=== PATIENT | female | born 1985 | race Caucasian/White ===

== ENCOUNTER 2022-05-01 08:02 | Day surgery (SDC) | payer OTHER ==
[2022-04-30 16:18] VITALS: BMI 31.8
[2022-05-01] MEDS ORDERED: levETIRAcetam 500 MG/5 ML INJECTION VIAL IVPB SCH (10:00)
[2022-05-01] MEDS ORDERED: KETAMINE HCL 500 MG/10 ML VIAL ONE (10:47)
[2022-05-02 15:58] VITALS: RESP 18; TEMP 98
[2022-05-02 16:03] VITALS: BP 122/78; PULSE 78
== END 2022-05-01 13:50 ==
LOC: FECT 08:02
PROVIDERS: ATTEND Psychiatry & Neurology Psychiatry
PROC: GZB4ZZZ Other Electroconvulsive Therapy (ICD-10-PCS; principal; 2022-05-01 12:07)
DX: F32.A Depression, unspecified (principal)
CPT/HCPCS: 81025; 90870; 94760

== ENCOUNTER 2022-05-03 05:56 | Day surgery (SDC) | payer OTHER ==
[2022-05-02 17:03] VITALS: BMI 31.8
[2022-05-03] MEDS ORDERED: KETAMINE HCL 500 MG/10 ML VIAL ONE (07:52)
[2022-05-03 08:25] VITALS: TEMP 98
[2022-05-03 09:30] VITALS: RESP 18
[2022-05-03 10:49] VITALS: BP 130/63; PULSE 89
== END 2022-05-03 10:00 ==
LOC: FECT 05:56
PROVIDERS: ATTEND Psychiatry & Neurology Psychiatry
PROC: GZB4ZZZ Other Electroconvulsive Therapy (ICD-10-PCS; principal; 2022-05-03 08:07)
DX: F32.A Depression, unspecified (principal)
CPT/HCPCS: 90870; 94760

== ENCOUNTER 2022-05-10 07:15 | Day surgery (SDC) | payer OTHER ==
[2022-05-08 07:12] VITALS: BMI 31.8
[2022-05-10] MEDS ORDERED: KETAMINE HCL 500 MG/10 ML VIAL ONE (09:03)
[2022-05-10 10:05] VITALS: RESP 18; TEMP 97.8
[2022-05-10 10:36] VITALS: BP 110/88; PULSE 89
== END 2022-05-10 10:30 ==
LOC: FECT 07:15
PROVIDERS: ATTEND Psychiatry & Neurology Psychiatry
PROC: GZB4ZZZ Other Electroconvulsive Therapy (ICD-10-PCS; principal; 2022-05-10 09:11)
DX: F32.A Depression, unspecified (principal)
CPT/HCPCS: 81025; 90870; 94760; C9803-CS; U0003; U0005

== ENCOUNTER → 2022-05-11 | Day surgery (SDC) | payer OTHER ==
[2022-05-08 07:23] VITALS: BMI 31.8
[~2022-05-11] MED LIST: ACETAMINOPHEN 325 MG TABLET (FP) PO PRN; KETAMINE HCL 500 MG/10 ML VIAL ONE; LACTATED RINGERS SOLUTION 1,000 ML IV SCH; ONDANSETRON 4 MG/2 ML VIAL IVPUSH PRN; PROMETHAZINE HCL 25 MG/1 ML VIAL IVPUSH PRN
[2022-05-11 09:37] VITALS: RESP 18; TEMP 97.9
[2022-05-11 10:20] VITALS: BP 121/80; PULSE 88
== END | disposition home or self-care (01) ==
LOC: FECT 06:44
PROVIDERS: ATTEND Psychiatry & Neurology Psychiatry
PROC: GZB4ZZZ Other Electroconvulsive Therapy (ICD-10-PCS; principal; 2022-05-11 08:33)
DX: F32.A Depression, unspecified (principal)
CPT/HCPCS: 90870; 94760

== ENCOUNTER 2022-05-17 06:51 | Day surgery (SDC) | payer OTHER ==
[2022-05-14 17:01] VITALS: BMI 31.8
[2022-05-17] MEDS ORDERED: KETAMINE HCL 500 MG/10 ML VIAL ONE (08:15)
[2022-05-17 08:47] VITALS: TEMP 97.8
[2022-05-17 09:37] VITALS: RESP 18
[2022-05-17 09:38] VITALS: BP 115/83; PULSE 88
== END 2022-05-17 09:50 ==
LOC: FECT 06:51
PROVIDERS: ATTEND Psychiatry & Neurology Psychiatry
PROC: GZB4ZZZ Other Electroconvulsive Therapy (ICD-10-PCS; principal; 2022-05-17 08:29)
DX: F33.2 Major depressive disorder, recurrent severe without psychotic features (principal)
CPT/HCPCS: 81025; 90870; 94760; C9803-CS; U0003; U0005

== ENCOUNTER 2022-05-18 07:27 | Day surgery (SDC) | payer OTHER ==
[2022-05-16 15:40] VITALS: BMI 31.8
[2022-05-18] MEDS ORDERED: KETAMINE HCL 500 MG/10 ML VIAL ONE (09:18)
[2022-05-18 10:23] VITALS: RESP 18; TEMP 98
[2022-05-18 10:53] VITALS: BP 122/72; PULSE 86
== END 2022-05-18 11:00 ==
LOC: FECT 07:27
PROVIDERS: ATTEND Psychiatry & Neurology Psychiatry
PROC: GZB4ZZZ Other Electroconvulsive Therapy (ICD-10-PCS; principal; 2022-05-18 09:30)
DX: F33.2 Major depressive disorder, recurrent severe without psychotic features (principal)
CPT/HCPCS: 90870; 94760

== ENCOUNTER 2022-05-22 05:56 | Day surgery (SDC) | payer OTHER ==
[2022-05-18 16:42] VITALS: BMI 31.8
[2022-05-22] MEDS ORDERED: KETAMINE HCL 500 MG/10 ML VIAL ONE (08:03)
[2022-05-22 09:36] VITALS: RESP 18; TEMP 98
[2022-05-22 09:38] VITALS: BP 115/70; PULSE 91
== END 2022-05-22 09:40 ==
LOC: FECT 05:56
PROVIDERS: ATTEND Psychiatry & Neurology Psychiatry
PROC: GZB4ZZZ Other Electroconvulsive Therapy (ICD-10-PCS; principal; 2022-05-22 08:19)
DX: F32.A Depression, unspecified (principal)
CPT/HCPCS: 81025; 90870; 94760; C9803-CS; U0003; U0005

== ENCOUNTER 2022-05-24 07:22 | Day surgery (SDC) | payer OTHER ==
[2022-05-22 15:47] VITALS: BMI 31.8
[2022-05-24] MEDS ORDERED: KETAMINE HCL 500 MG/10 ML VIAL ONE (10:01)
[2022-05-24 10:27] VITALS: TEMP 98.4
[2022-05-24] MEDS ORDERED: ACETAMINOPHEN 1000 MG/100 ML BAG IVPB ONE (11:02)
[2022-05-24 11:34] VITALS: RESP 18
[2022-05-24 11:40] VITALS: BP 115/84; PULSE 89
== END 2022-05-24 11:45 ==
LOC: FECT 07:22
PROVIDERS: ATTEND Psychiatry & Neurology Psychiatry
PROC: GZB4ZZZ Other Electroconvulsive Therapy (ICD-10-PCS; principal; 2022-05-24 10:11)
DX: F31.9 Bipolar disorder, unspecified (principal)
CPT/HCPCS: 90870; 94760

== ENCOUNTER 2022-05-25 06:09 | Day surgery (SDC) | payer OTHER ==
[2022-05-22 15:57] VITALS: BMI 31.8
[2022-05-25] MEDS ORDERED: KETAMINE HCL 500 MG/10 ML VIAL ONE (08:02)
[2022-05-25 08:32] VITALS: TEMP 97.4
[2022-05-25 08:51] VITALS: RESP 18
[2022-05-25 09:06] VITALS: BP 118/70; PULSE 92
== END 2022-05-25 09:40 | disposition home or self-care (01) ==
LOC: FECT 06:09
PROVIDERS: ATTEND Psychiatry & Neurology Psychiatry
PROC: GZB4ZZZ Other Electroconvulsive Therapy (ICD-10-PCS; principal; 2022-05-25 08:30)
DX: F32.A Depression, unspecified (principal)
CPT/HCPCS: 90870; 94760; C9803-CS; U0003; U0005

== ENCOUNTER 2022-05-29 06:25 | Day surgery (SDC) | payer OTHER ==
[2022-05-24 12:00] VITALS: BMI 31.8
[2022-05-29] MEDS ORDERED: KETAMINE HCL 500 MG/10 ML VIAL ONE (08:19)
[2022-05-29 09:32] VITALS: TEMP 97.8
[2022-05-29 10:22] VITALS: BP 118/71; PULSE 89; RESP 18
[2022-05-29] MEDS ORDERED: MIRTAZAPINE 30 MG TABLET PO SCH (22:00)
[2022-05-29] MEDS ORDERED: levETIRAcetam 500 MG TABLET (FP) PO SCH (22:00)
[2022-05-29] MEDS ORDERED: chlorproMAZINE HCL 100 MG TABLET PO SCH (22:00)
[2022-05-29] MEDS ORDERED: DOCUSATE SODIUM 100 MG CAPSULE (FP) PO SCH (22:00)
[2022-05-30] MEDS ORDERED: lamoTRIgine 100 MG TABLET PO SCH (10:00)
[2022-05-30] MEDS ORDERED: clonazePAM 0.5 MG TABLET PO SCH (10:00)
== END 2022-05-29 10:15 | disposition home or self-care (01) ==
LOC: FECT 06:25
PROVIDERS: ATTEND Psychiatry & Neurology Psychiatry
PROC: GZB4ZZZ Other Electroconvulsive Therapy (ICD-10-PCS; principal; 2022-05-29 08:32)
DX: F32.A Depression, unspecified (principal)
CPT/HCPCS: 81025; 90870; 94760

== ENCOUNTER 2022-06-08 08:48 | Day surgery (SDC) | payer OTHER ==
[2022-06-05 10:37] VITALS: BMI 31.8
[2022-06-08] MEDS ORDERED: KETAMINE HCL 500 MG/10 ML VIAL ONE (10:04)
[2022-06-08] MEDS ORDERED: ONDANSETRON 4 MG/2 ML VIAL ONE (10:08)
[2022-06-08] MEDS ORDERED: KETOROLAC TROMETHAMINE 30 MG/1 ML VIAL ONE (10:08)
[2022-06-08] MEDS ORDERED: SUCCINYLCHOLINE CHLORIDE 200 MG/10 ML SYRINGE ONE (10:08)
[2022-06-08] MEDS ORDERED: PROPOFOL 20 ML ONE (10:08)
[2022-06-08 10:52] VITALS: RESP 18
[2022-06-08] MEDS ORDERED: LACTATED RINGERS SOLUTION 1,000 ML IV SCH (11:15)
[2022-06-08 11:41] VITALS: BP 110/77; PULSE 89; TEMP 98
== END 2022-06-08 11:35 ==
LOC: FECT 08:48
PROVIDERS: ATTEND Psychiatry & Neurology Psychiatry
PROC: GZB4ZZZ Other Electroconvulsive Therapy (ICD-10-PCS; principal; 2022-06-08 10:15)
DX: F32.A Depression, unspecified (principal)
CPT/HCPCS: 81025; 90870; 94760

== ENCOUNTER 2022-06-12 06:09 | Day surgery (SDC) | payer OTHER ==
[2022-06-11 12:35] VITALS: BMI 31.8
[2022-06-12] MEDS ORDERED: KETAMINE HCL 200 MG/20 ML VIAL ONE (08:13)
[2022-06-12 08:59] VITALS: TEMP 97.2
[2022-06-12 09:05] VITALS: RESP 18
[2022-06-12 10:07] VITALS: BP 122/73; PULSE 89
== END 2022-06-12 10:00 ==
LOC: FECT 06:09
PROVIDERS: ATTEND Psychiatry & Neurology Psychiatry
PROC: GZB4ZZZ Other Electroconvulsive Therapy (ICD-10-PCS; principal; 2022-06-12 08:20)
DX: F32.A Depression, unspecified (principal)
CPT/HCPCS: 81025; 90870; 94760; C9803-CS; U0003; U0005

== ENCOUNTER 2022-06-14 06:16 | Day surgery (SDC) | payer OTHER ==
[2022-06-13 09:54] VITALS: BMI 31.8
[2022-06-14] MEDS ORDERED: KETAMINE HCL 500 MG/10 ML VIAL ONE (08:07)
[2022-06-14 09:01] VITALS: TEMP 97.1
[2022-06-14 09:42] VITALS: RESP 18
[2022-06-14 09:47] VITALS: BP 110/70; PULSE 91
== END 2022-06-14 09:55 ==
LOC: FECT 06:16
PROVIDERS: ATTEND Psychiatry & Neurology Psychiatry
PROC: GZB4ZZZ Other Electroconvulsive Therapy (ICD-10-PCS; principal; 2022-06-14 08:18)
DX: F32.A Depression, unspecified (principal)
CPT/HCPCS: 90870; 94760

== ENCOUNTER 2022-06-15 07:08 | Day surgery (SDC) | payer OTHER ==
[2022-06-11 17:24] VITALS: BMI 31.8
[2022-06-15] MEDS ORDERED: KETAMINE HCL 500 MG/10 ML VIAL ONE (09:08)
[2022-06-15] MEDS ORDERED: KETOROLAC TROMETHAMINE 30 MG/1 ML VIAL ONE (09:08)
[2022-06-15] MEDS ORDERED: ONDANSETRON 4 MG/2 ML VIAL ONE (09:08)
[2022-06-15 10:28] VITALS: RESP 18; TEMP 97.9
[2022-06-15 11:03] VITALS: BP 116/74; PULSE 98
== END 2022-06-15 11:00 ==
LOC: FECT 07:08
PROVIDERS: ATTEND Psychiatry & Neurology Psychiatry
PROC: GZB4ZZZ Other Electroconvulsive Therapy (ICD-10-PCS; principal; 2022-06-15 09:27)
DX: F32.A Depression, unspecified (principal)
CPT/HCPCS: 90870; 94760; C9803-CS; U0003; U0005

== ENCOUNTER 2022-06-19 06:05 | Day surgery (SDC) | payer OTHER ==
[2022-06-18 08:04] VITALS: BMI 31.8
[2022-06-19] MEDS ORDERED: KETAMINE HCL 500 MG/10 ML VIAL ONE (07:53)
[2022-06-19] MEDS ORDERED: SUCCINYLCHOLINE CHLORIDE 200 MG/10 ML SYRINGE ONE (08:01)
[2022-06-19 08:49] VITALS: RESP 18
[2022-06-19 09:41] VITALS: BP 121/81
[2022-06-19 09:45] VITALS: PULSE 81; TEMP 97
== END 2022-06-19 09:30 | disposition home or self-care (01) ==
LOC: FECT 06:05
PROVIDERS: ATTEND Psychiatry & Neurology Psychiatry
PROC: GZB4ZZZ Other Electroconvulsive Therapy (ICD-10-PCS; principal; 2022-06-19 08:07)
DX: F33.2 Major depressive disorder, recurrent severe without psychotic features (principal)
CPT/HCPCS: 81025; 90870; 94760; C9803-CS; U0003; U0005

== ENCOUNTER 2022-06-21 08:57 | Day surgery (SDC) | payer OTHER ==
[2022-06-18 08:10] VITALS: BMI 31.8
[2022-06-21 09:48] VITALS: RESP 16
[2022-06-21] MEDS ORDERED: KETAMINE HCL 500 MG/10 ML VIAL ONE (10:22)
[2022-06-21] MEDS ORDERED: SUCCINYLCHOLINE CHLORIDE 200 MG/10 ML SYRINGE ONE (10:25)
[2022-06-21] MEDS ORDERED: PROPOFOL 20 ML ONE (10:25)
[2022-06-21] MEDS ORDERED: ONDANSETRON 4 MG/2 ML VIAL ONE (10:26)
[2022-06-21 11:37] VITALS: TEMP 97.1
[2022-06-21 12:01] VITALS: BP 111/75; PULSE 90
== END 2022-06-21 12:04 | disposition home or self-care (01) ==
LOC: FECT 08:57
PROVIDERS: ATTEND Psychiatry & Neurology Psychiatry
PROC: GZB4ZZZ Other Electroconvulsive Therapy (ICD-10-PCS; principal; 2022-06-21 10:33)
DX: F32.A Depression, unspecified (principal)
CPT/HCPCS: 90870; 94760

== ENCOUNTER 2022-06-22 09:59 | Day surgery (SDC) | payer OTHER ==
[2022-06-18 08:12] VITALS: BMI 31.8
[2022-06-22] MEDS ORDERED: KETAMINE HCL 500 MG/10 ML VIAL ONE (11:42)
[2022-06-22 12:21] VITALS: TEMP 98.6
[2022-06-22 13:15] VITALS: RESP 18
[2022-06-22 13:22] VITALS: BP 109/80; PULSE 92
== END 2022-06-22 13:15 ==
LOC: FECT 09:59
PROVIDERS: ATTEND Psychiatry & Neurology Psychiatry
PROC: GZB4ZZZ Other Electroconvulsive Therapy (ICD-10-PCS; principal; 2022-06-22 11:52)
DX: F32.A Depression, unspecified (principal)
CPT/HCPCS: 90870; 94760; C9803-CS; U0003; U0005

== ENCOUNTER 2022-06-26 08:37 | Day surgery (SDC) | payer OTHER ==
[2022-06-22 11:39] VITALS: BMI 31.8
[2022-06-26] MEDS ORDERED: KETAMINE HCL 500 MG/10 ML VIAL ONE (10:33)
[2022-06-26 12:21] VITALS: RESP 20; TEMP 98.2
[2022-06-26 12:38] VITALS: BP 110/72; PULSE 94
== END 2022-06-26 12:45 | disposition home or self-care (01) ==
LOC: FECT 08:37
PROVIDERS: ATTEND Psychiatry & Neurology Psychiatry
PROC: GZB4ZZZ Other Electroconvulsive Therapy (ICD-10-PCS; principal; 2022-06-26 10:43)
DX: F32.A Depression, unspecified (principal)
CPT/HCPCS: 84703; 90870; 94760; C9803-CS; U0003; U0005

== ENCOUNTER 2022-07-12 06:05 | Day surgery (SDC) | payer OTHER ==
[2022-07-12 06:52] VITALS: TEMP 97.8; BMI 31.6
[2022-07-12] MEDS ORDERED: KETAMINE HCL 500 MG/10 ML VIAL ONE (08:35)
[2022-07-12] MEDS ORDERED: PROPOFOL 20 ML ONE (09:20)
[2022-07-12] MEDS ORDERED: DEXAMETHASONE SOD PHOSPHATE 4 MG/1 ML VIAL ONE ×2 (09:30→09:40)
[2022-07-12] MEDS ORDERED: ONDANSETRON 4 MG/2 ML VIAL ONE (09:30)
[2022-07-12] MEDS ORDERED: KETOROLAC TROMETHAMINE 30 MG/1 ML VIAL ONE (09:30)
[2022-07-12] MEDS ORDERED: SUCCINYLCHOLINE CHLORIDE 200 MG/10 ML SYRINGE ONE (10:10)
[2022-07-12] MEDS ORDERED: ONDANSETRON 4 MG/2 ML VIAL IVPUSH PRN (10:34)
[2022-07-12] MEDS ORDERED: LACTATED RINGERS SOLUTION 1,000 ML IV SCH (10:45)
[2022-07-12 11:28] VITALS: RESP 18
[2022-07-12 11:30] VITALS: BP 108/80; PULSE 98
== END 2022-07-12 11:30 ==
LOC: FECT 06:05
PROVIDERS: ATTEND Psychiatry & Neurology Psychiatry
PROC: GZB4ZZZ Other Electroconvulsive Therapy (ICD-10-PCS; principal; 2022-07-12 09:33)
DX: F32.A Depression, unspecified (principal)
CPT/HCPCS: 81025; 90870; 94760

== ENCOUNTER 2022-07-13 06:42 | Day surgery (SDC) | payer OTHER ==
[2022-06-22 11:46] VITALS: BMI 31.8
[2022-07-13] MEDS ORDERED: KETAMINE HCL 500 MG/10 ML VIAL ONE (08:51)
[2022-07-13 10:50] VITALS: PULSE 85; TEMP 97.9
[2022-07-13 10:52] VITALS: BP 114/67; RESP 18
== END 2022-07-13 11:11 | disposition home or self-care (01) ==
LOC: FECT 06:42
PROVIDERS: ATTEND Psychiatry & Neurology Psychiatry
PROC: GZB4ZZZ Other Electroconvulsive Therapy (ICD-10-PCS; principal; 2022-07-13 09:19)
DX: F32.A Depression, unspecified (principal)
CPT/HCPCS: 90870; 94760

== ENCOUNTER 2022-07-17 06:01 | Day surgery (SDC) | payer OTHER ==
[2022-06-25 12:24] VITALS: BMI 31.8
[2022-07-17] MEDS ORDERED: KETAMINE HCL 500 MG/10 ML VIAL ONE (07:59)
[2022-07-17 09:48] VITALS: BP 120/80; PULSE 66; RESP 20; TEMP 97.8
== END 2022-07-17 09:55 | disposition home or self-care (01) ==
LOC: FECT 06:01
PROVIDERS: ATTEND Psychiatry & Neurology Psychiatry
PROC: GZB4ZZZ Other Electroconvulsive Therapy (ICD-10-PCS; principal; 2022-07-17 08:22)
DX: F32.A Depression, unspecified (principal)
CPT/HCPCS: 81025; 90870; 94760

== ENCOUNTER 2022-07-19 06:42 | Day surgery (SDC) | payer OTHER ==
[2022-07-12 17:51] VITALS: BMI 31.6
[2022-07-19] MEDS ORDERED: SUCCINYLCHOLINE CHLORIDE 200 MG/10 ML SYRINGE ONE (08:28)
[2022-07-19] MEDS ORDERED: PROPOFOL 20 ML ONE (08:28)
[2022-07-19 10:24] VITALS: RESP 18; TEMP 97.4
[2022-07-19 10:40] VITALS: BP 117/70; PULSE 102
== END 2022-07-19 10:41 | disposition home or self-care (01) ==
LOC: FECT 06:42
PROVIDERS: ATTEND Psychiatry & Neurology Psychiatry
PROC: GZB4ZZZ Other Electroconvulsive Therapy (ICD-10-PCS; principal; 2022-07-19 09:37)
DX: F32.A Depression, unspecified (principal)
CPT/HCPCS: 90870; 94760

== ENCOUNTER 2022-07-20 06:17 | Day surgery (SDC) | payer OTHER ==
[2022-07-12 18:00] VITALS: BMI 31.6
[2022-07-20] MEDS ORDERED: hydrALAZINE HCL 20 MG/ML VIAL ONE (08:55)
[2022-07-20 09:13] VITALS: BP 121/77; PULSE 93; RESP 18; TEMP 98
== END 2022-07-20 09:00 ==
LOC: FECT 06:17
PROVIDERS: ATTEND Psychiatry & Neurology Psychiatry
PROC: GZB4ZZZ Other Electroconvulsive Therapy (ICD-10-PCS; principal; 2022-07-20 07:53)
DX: F31.9 Bipolar disorder, unspecified (principal)
CPT/HCPCS: 90870; 94760

== ENCOUNTER 2022-07-24 05:56 | Day surgery (SDC) | payer OTHER ==
[2022-07-19 10:51] VITALS: BMI 31.6
[2022-07-24] MEDS ORDERED: PROMETHAZINE HCL 25 MG/1 ML VIAL IVPUSH PRN (07:19)
[2022-07-24] MEDS ORDERED: ACETAMINOPHEN 500 MG TABLET (FP) PO PRN (07:19)
[2022-07-24] MEDS ORDERED: ONDANSETRON 4 MG/2 ML VIAL IVPUSH PRN (07:19)
[2022-07-24] MEDS ORDERED: LACTATED RINGERS SOLUTION 1,000 ML IV SCH (07:30)
[2022-07-24] MEDS ORDERED: LIDOCAINE HCL/PF 2% SDV 5ML VIAL ONE (08:07)
[2022-07-24 08:30] VITALS: TEMP 98.4
[2022-07-24 09:25] VITALS: BP 103/76; PULSE 96; RESP 18
== END 2022-07-24 09:40 ==
LOC: FECT 05:56
PROVIDERS: ATTEND Psychiatry & Neurology Psychiatry
PROC: GZB4ZZZ Other Electroconvulsive Therapy (ICD-10-PCS; principal; 2022-07-24 08:12)
DX: F31.9 Bipolar disorder, unspecified (principal)
CPT/HCPCS: 81025; 90870; 94760

== ENCOUNTER 2022-07-26 07:17 | Day surgery (SDC) | payer OTHER ==
[2022-07-19 10:56] VITALS: BMI 31.6
[2022-07-26] MEDS ORDERED: PROMETHAZINE HCL 25 MG/1 ML VIAL IVPUSH PRN (11:31)
[2022-07-26] MEDS ORDERED: ACETAMINOPHEN 500 MG TABLET (FP) PO PRN (11:31)
[2022-07-26] MEDS ORDERED: LACTATED RINGERS SOLUTION 1,000 ML IV SCH (11:45)
[2022-07-26 12:05] VITALS: BP 108/78; PULSE 98; RESP 18; TEMP 97.8
== END 2022-07-26 10:40 | disposition home or self-care (01) ==
LOC: FECT 07:17
PROVIDERS: ATTEND Psychiatry & Neurology Psychiatry
PROC: GZB4ZZZ Other Electroconvulsive Therapy (ICD-10-PCS; principal; 2022-07-26 09:25)
DX: F31.9 Bipolar disorder, unspecified (principal)
CPT/HCPCS: 90870; 94760

== ENCOUNTER 2022-07-27 07:51 | Day surgery (SDC) | payer OTHER ==
[2022-07-19 12:12] VITALS: BMI 31.6
[2022-07-27] MEDS ORDERED: KETAMINE HCL 500 MG/10 ML VIAL ONE (09:23)
[2022-07-27] MEDS ORDERED: ONDANSETRON 4 MG/2 ML VIAL ONE (09:26)
[2022-07-27] MEDS ORDERED: DEXAMETHASONE SOD PHOSPHATE 4 MG/1 ML VIAL ONE (09:26)
[2022-07-27] MEDS ORDERED: KETOROLAC TROMETHAMINE 30 MG/1 ML VIAL ONE (09:26)
[2022-07-27 14:14] VITALS: TEMP 97.5
[2022-07-27 14:18] VITALS: BP 124/85; PULSE 85; RESP 16
== END 2022-07-27 11:22 | disposition home or self-care (01) ==
LOC: FECT 07:51
PROVIDERS: ATTEND Psychiatry & Neurology Psychiatry
PROC: GZB4ZZZ Other Electroconvulsive Therapy (ICD-10-PCS; principal; 2022-07-27 09:35)
DX: F31.5 Bipolar disorder, current episode depressed, severe, with psychotic features (principal)
CPT/HCPCS: 90870; 94760

== ENCOUNTER 2022-07-31 08:09 | Day surgery (SDC) | payer OTHER ==
[2022-07-27 07:18] VITALS: BMI 31.6
[2022-07-31] MEDS ORDERED: KETAMINE HCL 500 MG/10 ML VIAL ONE (10:36)
[2022-07-31 11:11] VITALS: TEMP 98.8
[2022-07-31 12:23] VITALS: RESP 18
[2022-07-31 12:24] VITALS: BP 112/76; PULSE 98
== END 2022-07-31 12:15 ==
LOC: FECT 08:09
PROVIDERS: ATTEND Psychiatry & Neurology Psychiatry
PROC: GZB4ZZZ Other Electroconvulsive Therapy (ICD-10-PCS; principal; 2022-07-31 10:48)
DX: F31.9 Bipolar disorder, unspecified (principal)
CPT/HCPCS: 81025; 90870; 94760

== ENCOUNTER 2022-08-02 07:58 | Day surgery (SDC) | payer OTHER ==
[2022-07-27 07:35] VITALS: BMI 31.6
[2022-08-02] MEDS ORDERED: KETAMINE HCL 500 MG/10 ML VIAL ONE (08:48)
[2022-08-02] MEDS ORDERED: PROPOFOL 20 ML ONE (09:05)
[2022-08-02] MEDS ORDERED: SUCCINYLCHOLINE CHLORIDE 200 MG/10 ML SYRINGE ONE (09:05)
[2022-08-02 10:01] VITALS: RESP 18; TEMP 98
[2022-08-02 10:25] VITALS: BP 121/71; PULSE 98
== END 2022-08-02 10:40 ==
LOC: FECT 07:58
PROVIDERS: ATTEND Psychiatry & Neurology Psychiatry
PROC: GZB4ZZZ Other Electroconvulsive Therapy (ICD-10-PCS; principal; 2022-08-02 09:09)
DX: F32.A Depression, unspecified (principal)
CPT/HCPCS: 90870; 94760

== ENCOUNTER 2022-08-07 07:59 | Day surgery (SDC) | payer OTHER ==
[2022-08-02 15:54] VITALS: BMI 31.6
[2022-08-07] MEDS ORDERED: KETAMINE HCL 500 MG/10 ML VIAL ONE (08:45)
[2022-08-07 09:42] VITALS: TEMP 97.2
[2022-08-07 10:23] VITALS: RESP 18
[2022-08-07 10:46] VITALS: BP 100/68; PULSE 96
== END 2022-08-07 11:00 ==
LOC: FECT 07:59
PROVIDERS: ATTEND Psychiatry & Neurology Psychiatry
PROC: GZB4ZZZ Other Electroconvulsive Therapy (ICD-10-PCS; principal; 2022-08-07 09:15)
DX: F31.9 Bipolar disorder, unspecified (principal)
CPT/HCPCS: 81025; 90870; 94760

== ENCOUNTER 2022-08-10 07:18 | Day surgery (SDC) | payer OTHER ==
[2022-08-08 16:37] VITALS: BMI 31.6
[2022-08-10] MEDS ORDERED: KETAMINE HCL 500 MG/10 ML VIAL ONE (08:09)
[2022-08-10 09:42] VITALS: RESP 18; TEMP 97.8
[2022-08-10 10:18] VITALS: BP 111/64; PULSE 98
== END 2022-08-10 10:21 | disposition home or self-care (01) ==
LOC: FECT 07:18
PROVIDERS: ATTEND Psychiatry & Neurology Psychiatry
PROC: GZB4ZZZ Other Electroconvulsive Therapy (ICD-10-PCS; principal; 2022-08-10 08:55)
DX: F31.9 Bipolar disorder, unspecified (principal)
CPT/HCPCS: 90870; 94760; C9803-CS; U0003; U0005

== ENCOUNTER 2022-08-14 07:21 | Day surgery (SDC) | payer OTHER ==
[2022-08-09 14:08] VITALS: BMI 31.6
[2022-08-14] MEDS ORDERED: ONDANSETRON 4 MG/2 ML VIAL IVPUSH PRN (07:53)
[2022-08-14] MEDS ORDERED: LACTATED RINGERS SOLUTION 1,000 ML IV SCH (08:00)
[2022-08-14] MEDS ORDERED: KETAMINE HCL 500 MG/10 ML VIAL ONE (08:31)
[2022-08-14 09:49] VITALS: RESP 18
[2022-08-14 10:24] VITALS: TEMP 98
[2022-08-14 11:41] VITALS: BP 113/66; PULSE 99
== END 2022-08-14 11:30 ==
LOC: FECT 07:21
PROVIDERS: ATTEND Psychiatry & Neurology Psychiatry
PROC: GZB4ZZZ Other Electroconvulsive Therapy (ICD-10-PCS; principal; 2022-08-14 08:46)
DX: F31.9 Bipolar disorder, unspecified (principal)
CPT/HCPCS: 81025; 90870; 94760

== ENCOUNTER 2022-08-17 06:07 | Day surgery (SDC) | payer OTHER ==
[2022-08-17 06:42] VITALS: BMI 31.6
[2022-08-17] MEDS ORDERED: KETAMINE HCL 500 MG/10 ML VIAL ONE (07:33)
[2022-08-17 08:47] VITALS: RESP 18; TEMP 97.9
[2022-08-17 09:36] VITALS: BP 112/72; PULSE 82
== END 2022-08-17 09:40 ==
LOC: FECT 06:07
PROVIDERS: ATTEND Psychiatry & Neurology Psychiatry
PROC: GZB4ZZZ Other Electroconvulsive Therapy (ICD-10-PCS; principal; 2022-08-17 08:03)
DX: F31.9 Bipolar disorder, unspecified (principal)
CPT/HCPCS: 90870; 94760

== ENCOUNTER 2022-08-21 08:02 | Day surgery (SDC) | payer OTHER ==
[2022-08-14 15:22] VITALS: BMI 31.6
[~2022-08-21 08:02] MED LIST changes: -ACETAMINOPHEN 325 MG TABLET (FP) PO PRN; -KETAMINE HCL 500 MG/10 ML VIAL ONE; -PROMETHAZINE HCL 25 MG/1 ML VIAL IVPUSH PRN
[2022-08-21] MEDS ORDERED: ONDANSETRON 4 MG/2 ML VIAL ONE (10:18)
[2022-08-21] MEDS ORDERED: KETOROLAC TROMETHAMINE 30 MG/1 ML VIAL ONE (10:18)
[2022-08-21] MEDS ORDERED: SUCCINYLCHOLINE CHLORIDE 200 MG/10 ML SYRINGE ONE (10:18)
[2022-08-21] MEDS ORDERED: DEXAMETHASONE SOD PHOSPHATE 4 MG/1 ML VIAL ONE (10:18)
[2022-08-21] MEDS ORDERED: PROPOFOL 20 ML ONE (10:18)
[2022-08-21 11:11] VITALS: RESP 16
[2022-08-21 11:45] VITALS: TEMP 98.2
[2022-08-21 11:48] VITALS: BP 127/83; PULSE 110
== END 2022-08-21 12:15 ==
LOC: FECT 08:02
PROVIDERS: ATTEND Psychiatry & Neurology Psychiatry
PROC: GZB4ZZZ Other Electroconvulsive Therapy (ICD-10-PCS; principal; 2022-08-21 10:30)
DX: F31.63 Bipolar disorder, current episode mixed, severe, without psychotic features (principal)
CPT/HCPCS: 81025; 90870; 94760

== ENCOUNTER 2022-08-24 07:14 | Day surgery (SDC) | payer OTHER ==
[2022-08-24 07:41] VITALS: BMI 31.6
[2022-08-24] MEDS ORDERED: KETAMINE HCL 500 MG/10 ML VIAL ONE (08:23)
[2022-08-24 10:11] VITALS: RESP 18
[2022-08-24 10:15] VITALS: BP 121/80; PULSE 91; TEMP 98
== END 2022-08-24 10:15 | disposition home or self-care (01) ==
LOC: FECT 07:14
PROVIDERS: ATTEND Psychiatry & Neurology Psychiatry
PROC: GZB4ZZZ Other Electroconvulsive Therapy (ICD-10-PCS; principal; 2022-08-24 08:46)
DX: F31.9 Bipolar disorder, unspecified (principal)
CPT/HCPCS: 90870; 94760

== ENCOUNTER 2022-08-28 07:09 | Day surgery (SDC) | payer OTHER ==
[2022-08-22 11:55] VITALS: BMI 31.6
[2022-08-28] MEDS ORDERED: KETAMINE HCL 500 MG/10 ML VIAL ONE (08:37)
[2022-08-28 12:52] VITALS: RESP 17; TEMP 97.6
[2022-08-28 13:16] VITALS: BP 132/84; PULSE 97
== END 2022-08-28 10:30 | disposition home or self-care (01) ==
LOC: FECT 07:09
PROVIDERS: ATTEND Psychiatry & Neurology Psychiatry
PROC: GZB4ZZZ Other Electroconvulsive Therapy (ICD-10-PCS; principal; 2022-08-28 08:50)
DX: F31.63 Bipolar disorder, current episode mixed, severe, without psychotic features (principal)
CPT/HCPCS: 81025; 90870; 94760

== ENCOUNTER 2022-08-31 07:19 | Day surgery (SDC) | payer OTHER ==
[2022-08-29 11:12] VITALS: BMI 31.6
[2022-08-31] MEDS ORDERED: PROPOFOL 80 ML ONE (07:28)
[2022-08-31] MEDS ORDERED: KETAMINE HCL 500 MG/10 ML VIAL ONE (08:02)
[2022-08-31] MEDS ORDERED: PROPOFOL 60 ML ONE (08:12)
[2022-08-31] MEDS ORDERED: SUCCINYLCHOLINE CHLORIDE 200 MG/10 ML SYRINGE ONE (08:13)
[2022-08-31 10:15] VITALS: RESP 18; TEMP 98
[2022-08-31 10:16] VITALS: BP 118/77; PULSE 92
== END 2022-08-31 10:10 ==
LOC: FECT 07:19
PROVIDERS: ATTEND Psychiatry & Neurology Psychiatry
PROC: GZB4ZZZ Other Electroconvulsive Therapy (ICD-10-PCS; principal; 2022-08-31 08:41)
DX: F31.63 Bipolar disorder, current episode mixed, severe, without psychotic features (principal)
CPT/HCPCS: 90870; 94760

== ENCOUNTER 2022-09-07 09:40 | Day surgery (SDC) | payer OTHER ==
[2022-08-29 15:48] VITALS: BMI 31.6
[2022-09-07] MEDS ORDERED: KETAMINE HCL 500 MG/10 ML VIAL ONE (13:14)
[2022-09-07] MEDS ORDERED: LACTATED RINGERS SOLUTION 1,000 ML IV SCH (14:15)
[2022-09-07 14:40] VITALS: RESP 19
[2022-09-07 15:10] VITALS: BP 116/78; PULSE 95; TEMP 97
== END 2022-09-07 15:11 ==
LOC: FECT 09:40
PROVIDERS: ATTEND Psychiatry & Neurology Psychiatry
PROC: GZB4ZZZ Other Electroconvulsive Therapy (ICD-10-PCS; principal; 2022-09-07 13:26)
DX: F31.9 Bipolar disorder, unspecified (principal)
CPT/HCPCS: 81025; 90870; 94760

== ENCOUNTER 2022-09-11 07:02 | Day surgery (SDC) | payer OTHER ==
[2022-08-29 11:21] VITALS: BMI 31.6
[2022-09-11] MEDS ORDERED: KETAMINE HCL 500 MG/10 ML VIAL ONE (09:16)
[2022-09-11] MEDS ORDERED: ACETAMINOPHEN 325 MG TABLET (FP) PO PRN (10:18)
[2022-09-11] MEDS ORDERED: PROMETHAZINE HCL 25 MG/1 ML VIAL IVPB PRN (10:18)
[2022-09-11 10:28] VITALS: RESP 18; TEMP 97.8
[2022-09-11] MEDS ORDERED: LACTATED RINGERS SOLUTION 1,000 ML IV SCH (10:30)
[2022-09-11 11:26] VITALS: BP 114/74; PULSE 98
== END 2022-09-11 11:29 | disposition home or self-care (01) ==
LOC: FECT 07:02
PROVIDERS: ATTEND Psychiatry & Neurology Psychiatry
PROC: GZB4ZZZ Other Electroconvulsive Therapy (ICD-10-PCS; principal; 2022-09-11 09:32)
DX: F31.63 Bipolar disorder, current episode mixed, severe, without psychotic features (principal)
CPT/HCPCS: 81025; 90870; 94760

== ENCOUNTER 2022-09-14 08:24 | Day surgery (SDC) | payer OTHER ==
[2022-09-10 14:37] VITALS: BMI 31.6
[~2022-09-14 08:24] MED LIST changes: -ONDANSETRON 4 MG/2 ML VIAL IVPUSH PRN
[2022-09-14] MEDS ORDERED: KETAMINE HCL 500 MG/10 ML VIAL ONE (09:51)
[2022-09-14 10:53] VITALS: RESP 18; TEMP 97.7
[2022-09-14 11:09] VITALS: BP 116/75; PULSE 94
== END 2022-09-14 11:35 | disposition home or self-care (01) ==
LOC: FECT 08:24
PROVIDERS: ATTEND Psychiatry & Neurology Psychiatry
PROC: GZB4ZZZ Other Electroconvulsive Therapy (ICD-10-PCS; principal; 2022-09-14 10:03)
DX: F31.9 Bipolar disorder, unspecified (principal)
CPT/HCPCS: 90870; 94760

== ENCOUNTER → 2022-09-18 | Day surgery (SDC) | payer OTHER ==
[2022-09-12 15:52] VITALS: BMI 31.6
[~2022-09-18] MED LIST changes: +KETAMINE HCL 500 MG/10 ML VIAL ONE; -LACTATED RINGERS SOLUTION 1,000 ML IV SCH
[2022-09-18 13:13] VITALS: BP 115/82; PULSE 90; RESP 18
[2022-09-18 13:14] VITALS: TEMP 97.5
== END | disposition home or self-care (01) ==
LOC: FECT 09:29
PROVIDERS: ATTEND Psychiatry & Neurology Psychiatry
PROC: GZB4ZZZ Other Electroconvulsive Therapy (ICD-10-PCS; principal; 2022-09-18 11:10)
DX: F31.9 Bipolar disorder, unspecified (principal)
CPT/HCPCS: 81025; 90870; 94760

== ENCOUNTER 2022-09-20 09:30 | Day surgery (SDC) | payer OTHER ==
[2022-09-12 12:15] VITALS: BMI 31.6
[2022-09-20 13:09] VITALS: RESP 16; TEMP 97.4
[2022-09-20 13:10] VITALS: BP 112/72; PULSE 77
== END 2022-09-20 13:40 | disposition home or self-care (01) ==
LOC: FECT 09:30
PROVIDERS: ATTEND Psychiatry & Neurology Psychiatry
PROC: GZB4ZZZ Other Electroconvulsive Therapy (ICD-10-PCS; principal; 2022-09-20 11:50)
DX: F31.9 Bipolar disorder, unspecified (principal)
CPT/HCPCS: 90870; 94760

== ENCOUNTER → 2022-09-25 | Day surgery (SDC) | payer OTHER ==
[2022-09-18 15:59] VITALS: BMI 31.6
[2022-09-25 09:25] VITALS: RESP 16
[2022-09-25 11:42] VITALS: BP 118/74; PULSE 90; TEMP 97.8
== END | disposition home or self-care (01) ==
LOC: FECT 09:00
PROVIDERS: ATTEND Psychiatry & Neurology Psychiatry
PROC: GZB4ZZZ Other Electroconvulsive Therapy (ICD-10-PCS; principal; 2022-09-25 09:30)
DX: F31.9 Bipolar disorder, unspecified (principal)
CPT/HCPCS: 81025; 90870; 94760

== ENCOUNTER 2022-10-01 07:11 | Day surgery (SDC) | payer OTHER ==
[2022-09-21 08:24] VITALS: BMI 31.6
[2022-10-01 09:20] LABS: ALBUMIN 3.5 g/dl (3.4-5.0); BILIRUBIN,TOTAL 0.5 mg/dl (0.2-1); CALCIUM 8.7 mg/dl (8.5-10); CREATININE 0.6 mg/dl (0.55-1.3); TOT PROT 6.1 g/dl (6.4-8.2)
[2022-10-01 09:29] VITALS: TEMP 97.5
[2022-10-01 10:09] VITALS: RESP 18
[2022-10-01 10:10] VITALS: BP 110/76; PULSE 88
[2022-10-01 11:46] LABS: BASO % 0.7 % (0-2.0); EOS % 1.8 % (0-4.5); HEMATOCRIT 36.8 % (32.4-45.2); HEMOGLOBIN 13.2 GM/dL (10.7-15.3); LYMPH % 36.2 % (8-40); MCH 32.3 pg (25.7-33.7); MCHC 35.7 g/dl (32.0-36.0); MEAN CELL VOLUME 90.4 fl (80-96); MEAN PLT VOLUME 10.4 fl (7.5-11.1); MONO % 7.4 % (3.8-10.2); NEUT % 53.9 % (42.8-82.8); PLATELET COUNT 223 10^3/uL (134-434); RBC 4.07 M/mm3 (3.60-5.2); RDW 12.4 % (11.6-15.6); WHITE BLOOD COUNT 5.1 K/mm3 (4.0-10.0)
== END 2022-10-01 10:35 | disposition home or self-care (01) ==
LOC: FECT 07:11
PROVIDERS: ATTEND Psychiatry & Neurology Psychiatry
PROC: GZB4ZZZ Other Electroconvulsive Therapy (ICD-10-PCS; principal; 2022-10-01 08:57)
DX: F31.63 Bipolar disorder, current episode mixed, severe, without psychotic features (principal)
CPT/HCPCS: 36415; 80053; 81025; 85025; 90870; 93005; 93010; 94760

== ENCOUNTER 2022-10-04 07:05 | Day surgery (SDC) | payer OTHER ==
[2022-10-01 17:30] VITALS: BMI 31.6
[~2022-10-04 07:05] MED LIST changes: -KETAMINE HCL 500 MG/10 ML VIAL ONE; +LACTATED RINGERS SOLUTION 1,000 ML IV SCH
[2022-10-04 09:45] VITALS: TEMP 98.1
[2022-10-04 10:20] VITALS: BP 112/76; PULSE 86; RESP 18
== END 2022-10-04 10:26 | disposition home or self-care (01) ==
LOC: FECT 07:05
PROVIDERS: ATTEND Psychiatry & Neurology Psychiatry
PROC: GZB4ZZZ Other Electroconvulsive Therapy (ICD-10-PCS; principal; 2022-10-04 08:35)
DX: F31.9 Bipolar disorder, unspecified (principal)
CPT/HCPCS: 90870; 94760

== ENCOUNTER 2022-10-11 08:09 | Day surgery (SDC) | payer OTHER ==
[2022-09-25 17:32] VITALS: BMI 33.5
[2022-10-11] MEDS ORDERED: KETAMINE HCL 500 MG/10 ML VIAL ONE (09:34)
[2022-10-11 10:16] VITALS: TEMP 97.8
[2022-10-11 10:53] VITALS: RESP 18
[2022-10-11 11:17] VITALS: BP 112/66; PULSE 91
== END 2022-10-11 11:30 ==
LOC: FECT 08:09
PROVIDERS: ATTEND Psychiatry & Neurology Psychiatry
PROC: GZB4ZZZ Other Electroconvulsive Therapy (ICD-10-PCS; principal; 2022-10-11 09:48)
DX: F31.9 Bipolar disorder, unspecified (principal)
CPT/HCPCS: 84703; 90870; 94760

== ENCOUNTER 2022-10-18 06:27 | Day surgery (SDC) | payer OTHER ==
[2022-10-12 15:35] VITALS: BMI 33.5
[2022-10-18] MEDS ORDERED: KETAMINE HCL 500 MG/10 ML VIAL ONE (07:29)
[2022-10-18] MEDS ORDERED: SUCCINYLCHOLINE CHLORIDE 200 MG/10 ML SYRINGE ONE (07:43)
[2022-10-18] MEDS ORDERED: PROPOFOL 20 ML ONE (08:09)
[2022-10-18 08:10] VITALS: TEMP 97
[2022-10-18 09:05] VITALS: RESP 18
[2022-10-18 09:06] VITALS: BP 115/77; PULSE 89
== END 2022-10-18 09:15 ==
LOC: FECT 06:27
PROVIDERS: ATTEND Psychiatry & Neurology Psychiatry
PROC: GZB4ZZZ Other Electroconvulsive Therapy (ICD-10-PCS; principal; 2022-10-18 07:49)
DX: F31.63 Bipolar disorder, current episode mixed, severe, without psychotic features (principal)
CPT/HCPCS: 81025; 90870; 94760

== ENCOUNTER 2022-10-30 09:22 | Day surgery (SDC) | payer OTHER ==
[2022-10-23 14:14] VITALS: BMI 33.5
[2022-10-30] MEDS ORDERED: KETAMINE HCL 500 MG/10 ML VIAL ONE (11:13)
[2022-10-30 12:48] VITALS: RESP 18; TEMP 98
[2022-10-30 14:05] VITALS: BP 125/82; PULSE 92
== END 2022-10-30 13:00 ==
LOC: FECT 09:22
PROVIDERS: ATTEND Psychiatry & Neurology Psychiatry
PROC: GZB4ZZZ Other Electroconvulsive Therapy (ICD-10-PCS; principal; 2022-10-30 11:44)
DX: F31.63 Bipolar disorder, current episode mixed, severe, without psychotic features (principal)
CPT/HCPCS: 81025; 90870; 94760

== ENCOUNTER 2022-11-08 07:16 | Day surgery (SDC) | payer OTHER ==
[2022-11-08] MEDS ORDERED: SUCCINYLCHOLINE CHLORIDE 200 MG/10 ML SYRINGE ONE (07:41)
[2022-11-08] MEDS ORDERED: PROPOFOL 40 ML ONE (07:41)
[2022-11-08 07:43] VITALS: BMI 33.5
[2022-11-08] MEDS ORDERED: KETAMINE HCL 500 MG/10 ML VIAL ONE (09:35)
[2022-11-08] MEDS ORDERED: LIDOCAINE HCL/PF 2% SDV 5ML VIAL ONE (09:47)
[2022-11-08] MEDS ORDERED: ONDANSETRON 4 MG/2 ML VIAL ONE (09:53)
[2022-11-08 10:11] VITALS: TEMP 98.6
[2022-11-08 10:54] VITALS: RESP 18
[2022-11-08 11:07] VITALS: BP 118/75; PULSE 92
== END 2022-11-08 11:05 ==
LOC: FECT 07:16
PROVIDERS: ATTEND Psychiatry & Neurology Psychiatry
PROC: GZB4ZZZ Other Electroconvulsive Therapy (ICD-10-PCS; principal; 2022-11-08 09:45)
DX: F31.62 Bipolar disorder, current episode mixed, moderate (principal)
CPT/HCPCS: 81025; 90870; 94760

== ENCOUNTER 2022-11-15 06:07 | Day surgery (SDC) | payer OTHER ==
[2022-11-09 15:43] VITALS: BMI 33.5
[2022-11-15] MEDS ORDERED: KETAMINE HCL 500 MG/10 ML VIAL ONE (07:26)
[2022-11-15 08:11] VITALS: TEMP 98.2
[2022-11-15 09:17] VITALS: RESP 18
[2022-11-15 09:19] VITALS: BP 121/77; PULSE 88
== END 2022-11-15 09:30 ==
LOC: FECT 06:07
PROVIDERS: ATTEND Psychiatry & Neurology Psychiatry
PROC: GZB4ZZZ Other Electroconvulsive Therapy (ICD-10-PCS; principal; 2022-11-15 07:52)
DX: F31.62 Bipolar disorder, current episode mixed, moderate (principal)
CPT/HCPCS: 81025; 90870; 94760

== ENCOUNTER 2022-11-22 09:23 | Day surgery (SDC) | payer OTHER ==
[2022-11-15 12:25] VITALS: BMI 33.5
[2022-11-22] MEDS ORDERED: KETAMINE HCL 500 MG/10 ML VIAL ONE (10:46)
[2022-11-22 11:50] VITALS: TEMP 98.2
[2022-11-22 12:18] VITALS: RESP 18
[2022-11-22 12:22] VITALS: BP 120/72; PULSE 94
== END 2022-11-22 12:45 | disposition home or self-care (01) ==
LOC: FECT 09:23
PROVIDERS: ATTEND Psychiatry & Neurology Psychiatry
PROC: GZB4ZZZ Other Electroconvulsive Therapy (ICD-10-PCS; principal; 2022-11-22 10:59)
DX: F32.A Depression, unspecified (principal)
CPT/HCPCS: 81025; 90870; 94760

== ENCOUNTER 2022-11-29 06:06 | Day surgery (SDC) | payer OTHER ==
[2022-11-23 07:58] VITALS: BMI 33.5
[2022-11-29] MEDS ORDERED: KETAMINE HCL 500 MG/10 ML VIAL ONE (07:08)
[2022-11-29 08:47] VITALS: TEMP 98.3
[2022-11-29 10:15] VITALS: RESP 18
[2022-11-29 10:16] VITALS: BP 110/78; PULSE 92
== END 2022-11-29 10:00 ==
LOC: FECT 06:06
PROVIDERS: ATTEND Psychiatry & Neurology Psychiatry
PROC: GZB4ZZZ Other Electroconvulsive Therapy (ICD-10-PCS; principal; 2022-11-29 07:27)
DX: F32.A Depression, unspecified (principal)
CPT/HCPCS: 81025; 90870; 94760

== ENCOUNTER 2022-12-06 06:55 | Day surgery (SDC) | payer OTHER ==
[2022-11-30 17:26] VITALS: BMI 33.5
[2022-12-06] MEDS ORDERED: KETAMINE HCL 500 MG/10 ML VIAL ONE (08:23)
[2022-12-06] MEDS ORDERED: ACETAMINOPHEN 500 MG TABLET (FP) PO PRN (10:36)
[2022-12-06] MEDS ORDERED: PROMETHAZINE HCL 25 MG/1 ML VIAL IVPB PRN (10:36)
[2022-12-06 10:40] VITALS: RESP 18; TEMP 97.9
[2022-12-06] MEDS ORDERED: LACTATED RINGERS SOLUTION 1,000 ML IV SCH (10:45)
[2022-12-06 10:46] VITALS: BP 112/73; PULSE 88
== END 2022-12-06 11:00 ==
LOC: FECT 06:55
PROVIDERS: ATTEND Psychiatry & Neurology Psychiatry
PROC: GZB4ZZZ Other Electroconvulsive Therapy (ICD-10-PCS; principal; 2022-12-06 09:37)
DX: F31.9 Bipolar disorder, unspecified (principal)
CPT/HCPCS: 81025; 90870; 94760

== ENCOUNTER 2022-12-13 09:19 | Day surgery (SDC) | payer OTHER ==
[2022-12-10 16:10] VITALS: BMI 33.5
[2022-12-13 10:23] VITALS: RESP 18
[2022-12-13] MEDS ORDERED: KETAMINE HCL 500 MG/10 ML VIAL ONE (12:35)
[2022-12-13 13:52] VITALS: PULSE 78; TEMP 97.4
[2022-12-13 14:12] VITALS: BP 109/72
== END 2022-12-13 14:26 | disposition home or self-care (01) ==
LOC: FECT 09:19
PROVIDERS: ATTEND Psychiatry & Neurology Psychiatry
PROC: GZB4ZZZ Other Electroconvulsive Therapy (ICD-10-PCS; principal; 2022-12-13 12:45)
DX: F31.62 Bipolar disorder, current episode mixed, moderate (principal)
CPT/HCPCS: 81025; 90870; 94760

== ENCOUNTER 2022-12-20 10:32 | Day surgery (SDC) | payer OTHER ==
[2022-12-17 18:06] VITALS: BMI 33.5
[2022-12-20 11:13] VITALS: TEMP 97.5
[2022-12-20] MEDS ORDERED: KETAMINE HCL 500 MG/10 ML VIAL ONE (11:34)
[2022-12-20 12:49] VITALS: PULSE 85; RESP 16
[2022-12-20 13:54] VITALS: BP 109/76
== END 2022-12-20 13:40 ==
LOC: FECT 10:32
PROVIDERS: ATTEND Psychiatry & Neurology Psychiatry
PROC: GZB4ZZZ Other Electroconvulsive Therapy (ICD-10-PCS; principal; 2022-12-20 11:45)
DX: F31.9 Bipolar disorder, unspecified (principal)
CPT/HCPCS: 81025; 90870; 94760

== ENCOUNTER → 2022-12-27 | Day surgery (SDC) | payer OTHER ==
[2022-12-25 11:54] VITALS: BMI 33.5
[~2022-12-27] MED LIST changes: +ACETAMINOPHEN 500 MG TABLET (FP) PO PRN; +KETAMINE HCL 500 MG/10 ML VIAL ONE; +LIDOCAINE HCL/PF 2% SDV 5ML VIAL ONE; +PROMETHAZINE HCL 25 MG/1 ML VIAL IVPB PRN; +PROPOFOL 20 ML ONE
[2022-12-27 11:10] VITALS: PULSE 94; RESP 16; TEMP 97.8
[2022-12-27 11:24] VITALS: BP 115/74
== END | disposition home or self-care (01) ==
LOC: SUATTDRO 08:21 → FECT 08:21
PROVIDERS: ATTEND Student in an Organized Health Care Education/Training Program
PROC: GZB4ZZZ Other Electroconvulsive Therapy (ICD-10-PCS; principal; 2022-12-27 10:18)
DX: F31.9 Bipolar disorder, unspecified (principal)
CPT/HCPCS: 81025; 90870; 94760

== ENCOUNTER 2023-01-03 08:10 | Day surgery (SDC) | payer OTHER ==
[2022-12-31 17:41] VITALS: BMI 33.5
[2023-01-03 08:38] VITALS: RESP 18; TEMP 97.8
[2023-01-03 11:30] VITALS: BP 110/78; PULSE 82
== END 2023-01-03 11:30 | disposition home or self-care (01) ==
LOC: FECT 08:10
PROVIDERS: ATTEND Psychiatry & Neurology Psychiatry
PROC: GZB4ZZZ Other Electroconvulsive Therapy (ICD-10-PCS; principal; 2023-01-03 10:00)
DX: F31.9 Bipolar disorder, unspecified (principal)
CPT/HCPCS: 81025; 90870; 94760

== ENCOUNTER 2023-01-11 06:50 | Day surgery (SDC) | payer OTHER ==
[2023-01-10 10:40] VITALS: BMI 33.5
[2023-01-11] MEDS ORDERED: KETAMINE HCL 500 MG/10 ML VIAL ONE (07:56)
[2023-01-11 09:10] VITALS: TEMP 98.4
[2023-01-11 09:45] VITALS: RESP 18
[2023-01-11] MEDS ORDERED: ACETAMINOPHEN 500 MG TABLET (FP) PO PRN (10:05)
[2023-01-11] MEDS ORDERED: PROMETHAZINE HCL 25 MG/1 ML VIAL IVPB PRN (10:05)
[2023-01-11 10:11] VITALS: BP 108/77; PULSE 89
[2023-01-11] MEDS ORDERED: LACTATED RINGERS SOLUTION 1,000 ML IV SCH (10:15)
== END 2023-01-11 10:15 ==
LOC: FECT 06:50
PROVIDERS: ATTEND Psychiatry & Neurology Psychiatry
PROC: GZB4ZZZ Other Electroconvulsive Therapy (ICD-10-PCS; principal; 2023-01-11 08:44)
DX: F31.9 Bipolar disorder, unspecified (principal)
CPT/HCPCS: 81025; 90870; 94760

== ENCOUNTER 2023-01-18 07:16 | Day surgery (SDC) | payer OTHER ==
[2023-01-17 14:32] VITALS: BMI 33.5
[2023-01-18 07:52] VITALS: BP 105/71; PULSE 92; RESP 16; TEMP 98.2
== END 2023-01-18 08:07 | disposition home or self-care (01) ==
LOC: FECT 07:16
PROVIDERS: ATTEND Psychiatry & Neurology Psychiatry
PROC: GZB4ZZZ Other Electroconvulsive Therapy (ICD-10-PCS; principal; 2023-01-18)
DX: Z53.8 Procedure and treatment not carried out for other reasons (principal); F31.9 Bipolar disorder, unspecified; K08.9 Disorder of teeth and supporting structures, unspecified
CPT/HCPCS: 81025

== ENCOUNTER 2023-04-09 08:29 | Day surgery (SDC) | payer OTHER ==
[2023-04-05 17:47] VITALS: BMI 33.5
[2023-04-09] MEDS ORDERED: KETAMINE HCL 500 MG/10 ML VIAL ONE (10:35)
[2023-04-09 11:29] VITALS: TEMP 97.3
[2023-04-09 11:58] VITALS: RESP 18
[2023-04-09 12:16] VITALS: BP 121/72; PULSE 88
== END 2023-04-09 12:45 ==
LOC: FECT 08:29
PROVIDERS: ATTEND Psychiatry & Neurology Psychiatry
PROC: GZB4ZZZ Other Electroconvulsive Therapy (ICD-10-PCS; principal; 2023-04-09 10:47)
DX: F31.9 Bipolar disorder, unspecified (principal)
CPT/HCPCS: 81025; 90870; 94760

== ENCOUNTER 2023-04-11 08:58 | Day surgery (SDC) | payer OTHER ==
[2023-04-09 16:24] VITALS: BMI 33.5
[2023-04-11 11:12] VITALS: RESP 16; TEMP 98
[2023-04-11 13:06] VITALS: BP 130/82; PULSE 92
== END 2023-04-11 12:55 ==
LOC: FECT 08:58
PROVIDERS: ATTEND Psychiatry & Neurology Psychiatry
PROC: GZB4ZZZ Other Electroconvulsive Therapy (ICD-10-PCS; principal; 2023-04-11 10:09)
DX: F31.9 Bipolar disorder, unspecified (principal)
CPT/HCPCS: 90870; 94760

== ENCOUNTER → 2023-04-12 | Day surgery (SDC) | payer OTHER ==
[2023-04-09 16:30] VITALS: BMI 33.5
[~2023-04-12] MED LIST changes: -ACETAMINOPHEN 500 MG TABLET (FP) PO PRN; -KETAMINE HCL 500 MG/10 ML VIAL ONE; +KETOROLAC TROMETHAMINE 30 MG/1 ML VIAL IVPUSH ONE; -LIDOCAINE HCL/PF 2% SDV 5ML VIAL ONE; +ONDANSETRON 4 MG/2 ML VIAL IVPUSH PRN; -PROMETHAZINE HCL 25 MG/1 ML VIAL IVPB PRN; -PROPOFOL 20 ML ONE
[2023-04-12 11:42] VITALS: BP 120/76; RESP 16; TEMP 97.8
[2023-04-12 12:02] VITALS: PULSE 81
== END | disposition home or self-care (01) ==
LOC: FECT 08:38
PROVIDERS: ATTEND Psychiatry & Neurology Psychiatry
PROC: GZB4ZZZ Other Electroconvulsive Therapy (ICD-10-PCS; principal; 2023-04-12 10:38)
DX: F31.9 Bipolar disorder, unspecified (principal)
CPT/HCPCS: 90870; 94760

== ENCOUNTER 2023-04-16 08:42 | Day surgery (SDC) | payer OTHER ==
[2023-04-15 07:20] VITALS: BMI 33.5
[2023-04-16] MEDS ORDERED: KETAMINE HCL 500 MG/10 ML VIAL ONE (09:42)
[2023-04-16 10:18] VITALS: PULSE 84
[2023-04-16 11:05] VITALS: BP 131/84; RESP 18; TEMP 97.9
== END 2023-04-16 12:30 ==
LOC: FECT 08:42
PROVIDERS: ATTEND Psychiatry & Neurology Psychiatry
PROC: GZB4ZZZ Other Electroconvulsive Therapy (ICD-10-PCS; principal; 2023-04-16 09:52)
DX: F31.62 Bipolar disorder, current episode mixed, moderate (principal)
CPT/HCPCS: 81025; 90870; 94760

== ENCOUNTER 2023-04-18 08:23 | Day surgery (SDC) | payer OTHER ==
[2023-04-16 17:12] VITALS: BMI 33.5
[2023-04-18 10:31] VITALS: TEMP 98.2
[2023-04-18 10:58] VITALS: RESP 16
[2023-04-18 12:31] VITALS: BP 123/75; PULSE 104
== END 2023-04-18 12:25 ==
LOC: FECT 08:23
PROVIDERS: ATTEND Psychiatry & Neurology Psychiatry
PROC: GZB4ZZZ Other Electroconvulsive Therapy (ICD-10-PCS; principal; 2023-04-18 09:46)
DX: F31.9 Bipolar disorder, unspecified (principal)
CPT/HCPCS: 90870; 94760

== ENCOUNTER 2023-04-19 07:34 | Day surgery (SDC) | payer OTHER ==
[2023-04-16 17:16] VITALS: BMI 33.5
[2023-04-19 10:24] VITALS: RESP 16; TEMP 97.7
[2023-04-19 10:28] VITALS: BP 124/69; PULSE 100
== END 2023-04-19 10:15 ==
LOC: FECT 07:34
PROVIDERS: ATTEND Student in an Organized Health Care Education/Training Program
PROC: GZB4ZZZ Other Electroconvulsive Therapy (ICD-10-PCS; principal; 2023-04-19 08:47)
DX: F31.9 Bipolar disorder, unspecified (principal)
CPT/HCPCS: 90870; 94760

== ENCOUNTER 2023-04-23 06:22 | Day surgery (SDC) | payer OTHER ==
[2023-04-19 16:05] VITALS: BMI 33.5
[2023-04-23 09:04] VITALS: TEMP 97.3
[2023-04-23 09:15] VITALS: BP 113/73; PULSE 89; RESP 18
[2023-04-23] MEDS ORDERED: ACETAMINOPHEN 500 MG TABLET (FP) PO PRN (10:10)
[2023-04-23] MEDS ORDERED: PROMETHAZINE HCL 25 MG/1 ML VIAL IVPB PRN (10:10)
[2023-04-23] MEDS ORDERED: LACTATED RINGERS SOLUTION 1,000 ML IV SCH (10:15)
== END 2023-04-23 09:30 ==
LOC: FECT 06:22
PROVIDERS: ATTEND Psychiatry & Neurology Psychiatry
PROC: GZB4ZZZ Other Electroconvulsive Therapy (ICD-10-PCS; principal; 2023-04-23 07:58)
DX: F31.62 Bipolar disorder, current episode mixed, moderate (principal)
CPT/HCPCS: 81025; 90870; 94760

== ENCOUNTER 2023-04-25 08:33 | Day surgery (SDC) | payer OTHER ==
[2023-04-22 08:03] VITALS: BMI 33.5
[2023-04-25] MEDS ORDERED: KETAMINE HCL 200 MG/20 ML VIAL ONE (10:06)
[2023-04-25] MEDS ORDERED: SUCCINYLCHOLINE CHLORIDE 200 MG/10 ML SYRINGE ONE (10:06)
[2023-04-25] MEDS ORDERED: PROPOFOL 20 ML ONE (10:06)
[2023-04-25] MEDS ORDERED: ONDANSETRON 4 MG/2 ML VIAL ONE (10:07)
[2023-04-25] MEDS ORDERED: KETOROLAC TROMETHAMINE 30 MG/1 ML VIAL ONE (10:07)
[2023-04-25 11:01] VITALS: TEMP 97.4
[2023-04-25 11:04] VITALS: BP 122/86; PULSE 74; RESP 19
== END 2023-04-25 11:40 | disposition home or self-care (01) ==
LOC: FECT 08:33
PROVIDERS: ATTEND Psychiatry & Neurology Psychiatry
PROC: GZB4ZZZ Other Electroconvulsive Therapy (ICD-10-PCS; principal; 2023-04-25 10:12)
DX: F31.9 Bipolar disorder, unspecified (principal)
CPT/HCPCS: 90870; 94760

== ENCOUNTER 2023-04-26 06:34 | Day surgery (SDC) | payer OTHER ==
[2023-04-24 08:52] VITALS: BMI 33.5
[2023-04-26] MEDS ORDERED: KETAMINE HCL 500 MG/10 ML VIAL ONE (08:14)
[2023-04-26 09:47] VITALS: RESP 18; TEMP 98.3
[2023-04-26 09:51] VITALS: BP 101/66; PULSE 96
== END 2023-04-26 10:00 ==
LOC: FECT 06:34
PROVIDERS: ATTEND Psychiatry & Neurology Psychiatry
PROC: GZB4ZZZ Other Electroconvulsive Therapy (ICD-10-PCS; principal; 2023-04-26 08:31)
DX: F31.62 Bipolar disorder, current episode mixed, moderate (principal)
CPT/HCPCS: 90870; 94760

== ENCOUNTER 2023-04-30 09:15 | Day surgery (SDC) | payer OTHER ==
[2023-04-26 10:09] VITALS: BMI 33.5
[2023-04-30] MEDS ORDERED: KETAMINE HCL 500 MG/10 ML VIAL ONE (10:21)
[2023-04-30 11:40] VITALS: RESP 16; TEMP 98.1
[2023-04-30 11:58] VITALS: BP 115/74; PULSE 64
== END 2023-04-30 12:25 ==
LOC: FECT 09:15
PROVIDERS: ATTEND Psychiatry & Neurology Psychiatry
PROC: GZB4ZZZ Other Electroconvulsive Therapy (ICD-10-PCS; principal; 2023-04-30 10:38)
DX: F31.62 Bipolar disorder, current episode mixed, moderate (principal)
CPT/HCPCS: 81025; 90870; 94760

== ENCOUNTER 2023-05-03 07:18 | Day surgery (SDC) | payer OTHER ==
[2023-04-26 10:21] VITALS: BMI 33.5
[2023-05-03] MEDS ORDERED: KETAMINE HCL 500 MG/10 ML VIAL ONE (08:31)
[2023-05-03 10:07] VITALS: RESP 16; TEMP 97.4
[2023-05-03 10:13] VITALS: BP 115/78; PULSE 90
== END 2023-05-03 10:45 ==
LOC: FECT 07:18
PROVIDERS: ATTEND Psychiatry & Neurology Psychiatry
PROC: GZB4ZZZ Other Electroconvulsive Therapy (ICD-10-PCS; principal; 2023-05-03 08:53)
DX: F31.9 Bipolar disorder, unspecified (principal)
CPT/HCPCS: 90870; 94760

== ENCOUNTER 2023-05-09 08:40 | Day surgery (SDC) | payer OTHER ==
[2023-05-03 15:00] VITALS: BMI 33.5
[2023-05-09] MEDS ORDERED: LACTATED RINGERS SOLUTION 1,000 ML IV SCH (10:30)
[2023-05-09 12:13] VITALS: RESP 16
[2023-05-09 12:14] VITALS: TEMP 97.8
[2023-05-09 12:23] VITALS: BP 114/80; PULSE 92
== END 2023-05-09 12:30 ==
LOC: FECT 08:40
PROVIDERS: ATTEND Psychiatry & Neurology Psychiatry
PROC: GZB4ZZZ Other Electroconvulsive Therapy (ICD-10-PCS; principal; 2023-05-09 11:01)
DX: F31.9 Bipolar disorder, unspecified (principal)
CPT/HCPCS: 90870; 94760

== ENCOUNTER 2023-05-14 09:09 | Day surgery (SDC) | payer OTHER ==
[2023-05-10 17:07] VITALS: BMI 33.5
[2023-05-14] MEDS ORDERED: LACTATED RINGERS SOLUTION 1,000 ML IV SCH (11:15)
[2023-05-14 11:42] VITALS: RESP 19; TEMP 97.3
[2023-05-14 11:45] VITALS: BP 128/82; PULSE 82
== END 2023-05-14 12:35 | disposition home or self-care (01) ==
LOC: FECT 09:09
PROVIDERS: ATTEND Student in an Organized Health Care Education/Training Program
PROC: GZB4ZZZ Other Electroconvulsive Therapy (ICD-10-PCS; principal; 2023-05-14 10:46)
DX: F31.62 Bipolar disorder, current episode mixed, moderate (principal)
CPT/HCPCS: 81025; 90870; 94760

== ENCOUNTER 2023-05-17 07:16 | Day surgery (SDC) | payer OTHER ==
[2023-05-14 16:36] VITALS: BMI 33.5
[~2023-05-17 07:16] MED LIST changes: -KETOROLAC TROMETHAMINE 30 MG/1 ML VIAL IVPUSH ONE; -ONDANSETRON 4 MG/2 ML VIAL IVPUSH PRN
[2023-05-17] MEDS ORDERED: KETAMINE HCL 500 MG/10 ML VIAL ONE (09:14)
[2023-05-17] MEDS ORDERED: SEVOFLURANE 250 ML BTL ONE (09:59)
[2023-05-17 10:23] VITALS: TEMP 98.1
[2023-05-17 11:16] VITALS: RESP 18
[2023-05-17 11:18] VITALS: BP 114/76; PULSE 88
== END 2023-05-17 11:19 ==
LOC: FECT 07:16
PROVIDERS: ATTEND Student in an Organized Health Care Education/Training Program
PROC: GZB4ZZZ Other Electroconvulsive Therapy (ICD-10-PCS; principal; 2023-05-17 09:27)
DX: F31.9 Bipolar disorder, unspecified (principal)
CPT/HCPCS: 90870; 94760

== ENCOUNTER 2023-05-21 11:08 | Day surgery (SDC) | payer OTHER ==
[2023-05-17 17:48] VITALS: BMI 33.5
[2023-05-21 16:24] VITALS: RESP 17; TEMP 98
[2023-05-21 16:26] VITALS: BP 118/80; PULSE 65
== END 2023-05-21 14:15 | disposition home or self-care (01) ==
LOC: FECT 11:08
PROVIDERS: ATTEND Psychiatry & Neurology Psychiatry
PROC: GZB4ZZZ Other Electroconvulsive Therapy (ICD-10-PCS; principal; 2023-05-21 12:45)
DX: F31.9 Bipolar disorder, unspecified (principal)
CPT/HCPCS: 81025; 90870; 94760

== ENCOUNTER 2023-05-24 09:53 | Day surgery (SDC) | payer OTHER ==
[2023-05-22 15:40] VITALS: BMI 33.5
[2023-05-24] MEDS ORDERED: KETAMINE HCL 500 MG/10 ML VIAL ONE (11:44)
[2023-05-24 12:55] VITALS: PULSE 88; RESP 18; TEMP 98.1
[2023-05-24 13:25] VITALS: BP 127/78
== END 2023-05-24 13:25 ==
LOC: FECT 09:53
PROVIDERS: ATTEND Student in an Organized Health Care Education/Training Program
PROC: GZB4ZZZ Other Electroconvulsive Therapy (ICD-10-PCS; principal; 2023-05-24 12:02)
DX: F31.9 Bipolar disorder, unspecified (principal)
CPT/HCPCS: 90870; 94760

== ENCOUNTER 2023-05-28 09:11 | Day surgery (SDC) | payer OTHER ==
[2023-05-24 13:50] VITALS: BMI 33.5
[2023-05-28] MEDS ORDERED: SUCCINYLCHOLINE CHLORIDE 200 MG/10 ML SYRINGE ONE (10:29)
[2023-05-28] MEDS ORDERED: KETOROLAC TROMETHAMINE 30 MG/1 ML VIAL ONE (10:29)
[2023-05-28] MEDS ORDERED: KETAMINE HCL 500 MG/10 ML VIAL ONE (10:29)
[2023-05-28] MEDS ORDERED: PROPOFOL 20 ML ONE (10:29)
[2023-05-28] MEDS ORDERED: ONDANSETRON 4 MG/2 ML VIAL ONE (10:29)
[2023-05-28 11:34] VITALS: RESP 18; TEMP 97.8
[2023-05-28 12:05] VITALS: BP 123/83; PULSE 87
== END 2023-05-28 12:00 ==
LOC: FECT 09:11
PROVIDERS: ATTEND Student in an Organized Health Care Education/Training Program
PROC: GZB4ZZZ Other Electroconvulsive Therapy (ICD-10-PCS; principal; 2023-05-28 10:36)
DX: F31.5 Bipolar disorder, current episode depressed, severe, with psychotic features (principal)
CPT/HCPCS: 81025; 90870; 94760

== ENCOUNTER 2023-06-04 09:10 | Day surgery (SDC) | payer OTHER ==
[2023-05-29 07:10] VITALS: BMI 33.5
[2023-06-04 13:00] VITALS: TEMP 97.5
[2023-06-04 13:04] VITALS: RESP 18
[2023-06-04 13:05] VITALS: BP 133/83; PULSE 85
== END 2023-06-04 13:00 ==
LOC: FECT 09:10
PROVIDERS: ATTEND Student in an Organized Health Care Education/Training Program
PROC: GZB4ZZZ Other Electroconvulsive Therapy (ICD-10-PCS; principal; 2023-06-04 11:25)
DX: F31.9 Bipolar disorder, unspecified (principal)
CPT/HCPCS: 81025; 90870; 94760

== ENCOUNTER 2023-06-07 08:08 | Day surgery (SDC) | payer OTHER ==
[2023-06-05 13:03] VITALS: BMI 33.5
[2023-06-07] MEDS ORDERED: KETAMINE HCL 100 MG/ML - 5ML VIAL ONE (09:30)
[2023-06-07 11:05] VITALS: RESP 18
[2023-06-07 11:09] VITALS: TEMP 97.8
[2023-06-07 11:43] VITALS: BP 106/72; PULSE 81
== END 2023-06-07 11:45 | disposition home or self-care (01) ==
LOC: FECT 08:08
PROVIDERS: ATTEND Psychiatry & Neurology Psychiatry
PROC: GZB4ZZZ Other Electroconvulsive Therapy (ICD-10-PCS; principal; 2023-06-07 10:20)
DX: F31.9 Bipolar disorder, unspecified (principal)
CPT/HCPCS: 90870; 94760

== ENCOUNTER 2023-06-11 11:57 | Emergency (ER) | payer OTHER ==
[2023-06-11] MEDS ORDERED: ACETAMINOPHEN 500 MG TABLET (FP) PO ONE (12:03)
[2023-06-11] MEDS ORDERED: ACETAMINOPHEN 500 MG TABLET (FP) ONE (12:04)
[2023-06-11] MEDS ORDERED: DEXAMETHASONE SOD PHOSPHATE 10 MG/1 ML VIAL PO ONE (12:13)
[2023-06-11] MEDS ORDERED: IBUPROFEN 600 MG TABLET (FP) PO ONE (12:13)
[2023-06-11] MEDS ORDERED: IBUPROFEN 400 MG TABLET (FP) PO ONE (12:21)
[2023-06-11] MEDS ORDERED: DEXAMETHASONE SOD PHOSPHATE 10 MG/1 ML VIAL ONE (12:21)
[2023-06-11 13:17] VITALS: RESP 16; BMI 31.6
[2023-06-11 14:20] LABS: THROAT:GRP A STREP NOT DETECTED (NOTDETECTED)
[2023-06-11 14:23] VITALS: BP 110/71; PULSE 104; TEMP 99.9
== END 2023-06-11 14:32 | disposition home or self-care (01) ==
LOC: FER 11:57
DX: J02.9 Acute pharyngitis, unspecified (principal); R50.9 Fever, unspecified; R00.0 Tachycardia, unspecified; Z20.822 Contact with and (suspected) exposure to COVID-19
CPT/HCPCS: 0241U-QW; 87651; 99283-25; J1100

== ENCOUNTER → 2023-06-11 | Day surgery (SDC) | payer OTHER ==
[2023-06-10 08:20] VITALS: BMI 33.5
[~2023-06-11] MED LIST changes: +DEXAMETHASONE SOD PHOSPHATE 4 MG/1 ML VIAL ONE; +KETAMINE HCL 100 MG/ML - 5ML VIAL ONE; +KETOROLAC TROMETHAMINE 30 MG/1 ML VIAL ONE; -LACTATED RINGERS SOLUTION 1,000 ML IV SCH; +LIDOCAINE HCL/PF 2% SDV 5ML VIAL ONE; +ONDANSETRON 4 MG/2 ML VIAL ONE; +PROPOFOL 20 ML ONE; +SUCCINYLCHOLINE CHLORIDE 200 MG/10 ML SYRINGE ONE
== END | disposition home or self-care (01) ==
LOC: FECT 11:12
PROVIDERS: ATTEND Psychiatry & Neurology Psychiatry
PROC: GZB4ZZZ Other Electroconvulsive Therapy (ICD-10-PCS; principal; 2023-06-11)
DX: Z53.09 Procedure and treatment not carried out because of other contraindication (principal)

== ENCOUNTER 2023-06-14 10:59 | Day surgery (SDC) | payer OTHER ==
[2023-06-13 18:50] VITALS: BMI 33.5
[2023-06-14] MEDS ORDERED: PROPOFOL 20 ML ONE (13:26)
[2023-06-14] MEDS ORDERED: ONDANSETRON 4 MG/2 ML VIAL ONE (13:27)
[2023-06-14] MEDS ORDERED: KETAMINE HCL 500 MG/10 ML VIAL ONE (13:27)
[2023-06-14] MEDS ORDERED: KETOROLAC TROMETHAMINE 30 MG/1 ML VIAL ONE (13:27)
[2023-06-14 14:25] VITALS: RESP 18; TEMP 98.3
[2023-06-14 14:59] VITALS: BP 110/70; PULSE 85
== END 2023-06-14 15:03 | disposition home or self-care (01) ==
LOC: FECT 10:59
PROVIDERS: ATTEND Student in an Organized Health Care Education/Training Program
PROC: GZB4ZZZ Other Electroconvulsive Therapy (ICD-10-PCS; principal; 2023-06-14 12:30)
DX: F31.9 Bipolar disorder, unspecified (principal)
CPT/HCPCS: 81025; 90870; 94760

== ENCOUNTER 2023-06-18 11:24 | Day surgery (SDC) | payer OTHER ==
[2023-06-17 07:53] VITALS: BMI 33.5
[2023-06-18 14:09] VITALS: RESP 20; TEMP 97.2
[2023-06-18 14:37] VITALS: BP 120/74; PULSE 94
== END 2023-06-18 14:40 | disposition home or self-care (01) ==
LOC: FECT 11:24
PROVIDERS: ATTEND Student in an Organized Health Care Education/Training Program
PROC: GZB4ZZZ Other Electroconvulsive Therapy (ICD-10-PCS; principal; 2023-06-18 13:23)
DX: F31.9 Bipolar disorder, unspecified (principal)
CPT/HCPCS: 81025; 90870; 94760

== ENCOUNTER 2023-06-21 09:23 | Day surgery (SDC) | payer OTHER ==
[2023-06-18 15:52] VITALS: BMI 33.5
[2023-06-21 13:11] VITALS: PULSE 70
[2023-06-21 13:29] VITALS: BP 110/60; RESP 18; TEMP 97.5
== END 2023-06-21 13:29 | disposition home or self-care (01) ==
LOC: FECT 09:23
PROVIDERS: ATTEND Student in an Organized Health Care Education/Training Program
PROC: GZB4ZZZ Other Electroconvulsive Therapy (ICD-10-PCS; principal; 2023-06-21 11:55)
DX: F31.62 Bipolar disorder, current episode mixed, moderate (principal)
CPT/HCPCS: 81025; 90870; 94760

== ENCOUNTER 2023-06-25 12:06 | Day surgery (SDC) | payer OTHER ==
[2023-06-24 09:47] VITALS: BMI 33.5
[2023-06-25] MEDS ORDERED: KETAMINE HCL 100 MG/ML - 5ML VIAL ONE (13:59)
[2023-06-25 14:25] VITALS: TEMP 98.2
[2023-06-25 15:31] VITALS: BP 110/60; PULSE 74; RESP 16
== END 2023-06-25 15:25 ==
LOC: FECT 12:06
PROVIDERS: ATTEND Student in an Organized Health Care Education/Training Program
PROC: GZB4ZZZ Other Electroconvulsive Therapy (ICD-10-PCS; principal; 2023-06-25 14:11)
DX: F31.62 Bipolar disorder, current episode mixed, moderate (principal)
CPT/HCPCS: 81025; 90870; 94760

== ENCOUNTER 2023-06-28 09:43 | Day surgery (SDC) | payer OTHER ==
[2023-06-26 13:44] VITALS: BMI 33.5
[2023-06-28 14:11] VITALS: RESP 18; TEMP 97.2
[2023-06-28 14:39] VITALS: BP 118/70; PULSE 74
== END 2023-06-28 14:56 | disposition home or self-care (01) ==
LOC: FECT 09:43
PROVIDERS: ATTEND Psychiatry & Neurology Psychiatry
PROC: GZB4ZZZ Other Electroconvulsive Therapy (ICD-10-PCS; principal; 2023-06-28 13:01)
DX: F31.62 Bipolar disorder, current episode mixed, moderate (principal)
CPT/HCPCS: 90870; 94760

== ENCOUNTER 2023-07-05 08:33 | Day surgery (SDC) | payer OTHER ==
[2023-07-02 16:01] VITALS: BMI 33.5
[2023-07-05 11:36] VITALS: BP 106/68; PULSE 86; RESP 19; TEMP 97.8
== END 2023-07-05 11:50 | disposition home or self-care (01) ==
LOC: FECT 08:33
PROVIDERS: ATTEND Student in an Organized Health Care Education/Training Program
PROC: GZB4ZZZ Other Electroconvulsive Therapy (ICD-10-PCS; principal; 2023-07-05 10:28)
DX: F31.9 Bipolar disorder, unspecified (principal)
CPT/HCPCS: 81025; 90870; 94760

== ENCOUNTER 2023-07-09 08:17 | Day surgery (SDC) | payer OTHER ==
[2023-07-05 14:23] VITALS: BMI 33.5
[2023-07-09] MEDS ORDERED: ONDANSETRON 4 MG/2 ML VIAL ONE (10:44)
[2023-07-09] MEDS ORDERED: KETAMINE HCL 100 MG/ML - 5ML VIAL ONE (10:45)
[2023-07-09 12:00] VITALS: BP 124/67; RESP 16; TEMP 97.8
[2023-07-09 12:18] VITALS: PULSE 90
== END 2023-07-09 12:19 | disposition home or self-care (01) ==
LOC: FECT 08:17
PROVIDERS: ATTEND Student in an Organized Health Care Education/Training Program
PROC: GZB4ZZZ Other Electroconvulsive Therapy (ICD-10-PCS; principal; 2023-07-09 11:10)
DX: F31.62 Bipolar disorder, current episode mixed, moderate (principal)
CPT/HCPCS: 81025; 90870; 94760

== ENCOUNTER 2023-07-12 11:23 | Day surgery (SDC) | payer OTHER ==
[2023-07-12 08:05] VITALS: BMI 33.5
[2023-07-12 11:51] VITALS: BP 127/82; PULSE 95; RESP 18; TEMP 98.1
== END 2023-07-12 12:23 ==
LOC: FECT 11:23
PROVIDERS: ATTEND Student in an Organized Health Care Education/Training Program
PROC: GZB4ZZZ Other Electroconvulsive Therapy (ICD-10-PCS; principal; 2023-07-12)
DX: Z53.8 Procedure and treatment not carried out for other reasons (principal); F31.62 Bipolar disorder, current episode mixed, moderate

== ENCOUNTER 2023-07-18 06:10 | Day surgery (SDC) | payer OTHER ==
[2023-07-17 15:30] VITALS: BMI 33.5
[2023-07-18] MEDS ORDERED: KETAMINE HCL 100 MG/ML - 5ML VIAL ONE (08:21)
[2023-07-18 09:31] VITALS: TEMP 98.6
[2023-07-18 09:39] VITALS: RESP 18
[2023-07-18 11:19] VITALS: BP 112/77; PULSE 81
== END 2023-07-18 10:20 ==
LOC: FECT 06:10
PROVIDERS: ATTEND Psychiatry & Neurology Psychiatry
PROC: GZB4ZZZ Other Electroconvulsive Therapy (ICD-10-PCS; principal; 2023-07-18 08:36)
DX: F31.62 Bipolar disorder, current episode mixed, moderate (principal)
CPT/HCPCS: 81025; 90870; 94760

== ENCOUNTER 2023-07-19 06:56 | Day surgery (SDC) | payer OTHER ==
[2023-07-19 06:45] VITALS: BMI 33.5
[2023-07-19] MEDS ORDERED: KETAMINE HCL 100 MG/ML - 5ML VIAL ONE (08:18)
[2023-07-19 09:19] VITALS: RESP 16; TEMP 98
[2023-07-19 10:30] VITALS: BP 116/76; PULSE 78
== END 2023-07-19 10:00 | disposition home or self-care (01) ==
LOC: FECT 06:56
PROVIDERS: ATTEND Psychiatry & Neurology Psychiatry
PROC: GZB4ZZZ Other Electroconvulsive Therapy (ICD-10-PCS; principal; 2023-07-19 08:27)
DX: F31.62 Bipolar disorder, current episode mixed, moderate (principal)
CPT/HCPCS: 90870; 94760

== ENCOUNTER 2023-07-26 08:23 | Day surgery (SDC) | payer OTHER ==
[2023-07-18 17:45] VITALS: BMI 33.5
[2023-07-26] MEDS ORDERED: PROPOFOL 20 ML ONE (10:16)
[2023-07-26] MEDS ORDERED: KETAMINE HCL 100 MG/ML - 5ML VIAL ONE (10:16)
[2023-07-26] MEDS ORDERED: KETOROLAC TROMETHAMINE 30 MG/1 ML VIAL ONE (10:17)
[2023-07-26] MEDS ORDERED: DEXAMETHASONE SOD PHOSPHATE 4 MG/1 ML VIAL ONE (10:17)
[2023-07-26] MEDS ORDERED: ONDANSETRON 4 MG/2 ML VIAL ONE (10:17)
[2023-07-26] MEDS ORDERED: SUCCINYLCHOLINE CHLORIDE 200 MG/10 ML SYRINGE ONE (10:17)
[2023-07-26 11:16] VITALS: RESP 16; TEMP 97.9
[2023-07-26 11:33] VITALS: BP 109/87; PULSE 81
== END 2023-07-26 11:57 ==
LOC: FECT 08:23
PROVIDERS: ATTEND Student in an Organized Health Care Education/Training Program
PROC: GZB4ZZZ Other Electroconvulsive Therapy (ICD-10-PCS; principal; 2023-07-26 10:26)
DX: F31.62 Bipolar disorder, current episode mixed, moderate (principal)
CPT/HCPCS: 81025; 90870; 94760

== ENCOUNTER 2023-07-30 10:34 | Day surgery (SDC) | payer OTHER ==
[2023-07-18 16:52] VITALS: BMI 33.5
[~2023-07-30 10:34] MED LIST changes: -DEXAMETHASONE SOD PHOSPHATE 4 MG/1 ML VIAL ONE; -KETAMINE HCL 100 MG/ML - 5ML VIAL ONE; -KETOROLAC TROMETHAMINE 30 MG/1 ML VIAL ONE; +LACTATED RINGERS SOLUTION 1,000 ML IV SCH; -LIDOCAINE HCL/PF 2% SDV 5ML VIAL ONE; +ONDANSETRON 4 MG/2 ML VIAL IVPUSH PRN; -ONDANSETRON 4 MG/2 ML VIAL ONE; -PROPOFOL 20 ML ONE; -SUCCINYLCHOLINE CHLORIDE 200 MG/10 ML SYRINGE ONE
[2023-07-30] MEDS ORDERED: KETAMINE HCL 100 MG/ML - 5ML VIAL ONE (12:41)
[2023-07-30 13:40] VITALS: BP 110/71; PULSE 95; RESP 18; TEMP 97.6
== END 2023-07-30 14:23 | disposition home or self-care (01) ==
LOC: FECT 10:34
PROVIDERS: ATTEND Student in an Organized Health Care Education/Training Program
PROC: GZB4ZZZ Other Electroconvulsive Therapy (ICD-10-PCS; principal; 2023-07-30 12:51)
DX: F31.9 Bipolar disorder, unspecified (principal)
CPT/HCPCS: 81025; 90870; 94760

== ENCOUNTER 2023-08-08 08:50 | Day surgery (SDC) | payer OTHER ==
[2023-07-31 16:38] VITALS: BMI 33.5
[2023-08-08] MEDS ORDERED: KETAMINE HCL 100 MG/ML - 5ML VIAL ONE (11:26)
[2023-08-08] MEDS ORDERED: PROPOFOL 20 ML ONE (11:42)
[2023-08-08 13:11] VITALS: BP 124/82; PULSE 89; RESP 19
[2023-08-08 13:12] VITALS: TEMP 97.9
== END 2023-08-08 13:30 | disposition home or self-care (01) ==
LOC: FECT 08:50
PROVIDERS: ATTEND Student in an Organized Health Care Education/Training Program
PROC: GZB4ZZZ Other Electroconvulsive Therapy (ICD-10-PCS; principal; 2023-08-08 10:00)
DX: F31.9 Bipolar disorder, unspecified (principal)
CPT/HCPCS: 81025; 90870; 94760

== ENCOUNTER 2023-08-09 09:16 | Day surgery (SDC) | payer OTHER ==
[2023-08-06 15:21] VITALS: BMI 33.5
[2023-08-09] MEDS ORDERED: KETAMINE HCL 100 MG/ML - 5ML VIAL ONE (10:46)
[2023-08-09 12:06] VITALS: RESP 18
[2023-08-09 12:16] VITALS: TEMP 97.7
[2023-08-09 12:42] VITALS: BP 110/72; PULSE 73
== END 2023-08-09 12:45 | disposition home or self-care (01) ==
LOC: FECT 09:16
PROVIDERS: ATTEND Student in an Organized Health Care Education/Training Program
PROC: GZB4ZZZ Other Electroconvulsive Therapy (ICD-10-PCS; principal; 2023-08-09 11:24)
DX: F32.A Depression, unspecified (principal)
CPT/HCPCS: 90870; 94760

== ENCOUNTER 2023-08-13 09:08 | Day surgery (SDC) | payer OTHER ==
[2023-08-12 08:53] VITALS: BMI 33.5
[2023-08-13] MEDS ORDERED: KETAMINE HCL 100 MG/ML - 5ML VIAL ONE (10:17)
[2023-08-13 11:12] VITALS: RESP 18; TEMP 98.3
[2023-08-13 12:07] VITALS: BP 112/74; PULSE 74
== END 2023-08-13 12:08 | disposition home or self-care (01) ==
LOC: FECT 09:08
PROVIDERS: ATTEND Student in an Organized Health Care Education/Training Program
PROC: GZB4ZZZ Other Electroconvulsive Therapy (ICD-10-PCS; principal; 2023-08-13 10:33)
DX: F32.A Depression, unspecified (principal)
CPT/HCPCS: 84703; 90870; 94760

== ENCOUNTER 2023-08-16 09:40 | Day surgery (SDC) | payer OTHER ==
[2023-08-13 17:39] VITALS: BMI 33.5
[2023-08-16] MEDS ORDERED: KETAMINE HCL 100 MG/ML - 5ML VIAL ONE (11:48)
[2023-08-16 12:22] VITALS: TEMP 97.3
[2023-08-16 13:53] VITALS: RESP 18
[2023-08-16 13:57] VITALS: BP 121/75; PULSE 89
== END 2023-08-16 13:30 ==
LOC: FECT 09:40
PROVIDERS: ATTEND Student in an Organized Health Care Education/Training Program
PROC: GZB4ZZZ Other Electroconvulsive Therapy (ICD-10-PCS; principal; 2023-08-16 11:59)
DX: F32.A Depression, unspecified (principal)
CPT/HCPCS: 90870; 94760

== ENCOUNTER 2023-08-22 10:38 | Day surgery (SDC) | payer OTHER ==
[2023-08-19 14:43] VITALS: BMI 33.5
[2023-08-22] MEDS ORDERED: KETAMINE HCL 100 MG/ML - 5ML VIAL ONE (11:36)
[2023-08-22 12:55] VITALS: RESP 18
[2023-08-22 16:07] VITALS: TEMP 98.5
[2023-08-22 16:08] VITALS: BP 123/82; PULSE 69
== END 2023-08-22 13:00 ==
LOC: FECT 10:38
PROVIDERS: ATTEND Student in an Organized Health Care Education/Training Program
PROC: GZB4ZZZ Other Electroconvulsive Therapy (ICD-10-PCS; principal; 2023-08-22 11:52)
DX: F31.9 Bipolar disorder, unspecified (principal)
CPT/HCPCS: 81025; 90870; 94760

== ENCOUNTER 2023-08-23 10:21 | Day surgery (SDC) | payer OTHER ==
[2023-08-23 10:45] VITALS: BMI 33.5
[2023-08-23] MEDS ORDERED: KETAMINE HCL 100 MG/ML - 5ML VIAL ONE (13:02)
[2023-08-23 14:15] VITALS: TEMP 98.2
[2023-08-23 14:19] VITALS: BP 122/72; PULSE 96; RESP 18
== END 2023-08-23 14:19 | disposition home or self-care (01) ==
LOC: FECT 10:21
PROVIDERS: ATTEND Student in an Organized Health Care Education/Training Program
PROC: GZB4ZZZ Other Electroconvulsive Therapy (ICD-10-PCS; principal; 2023-08-23 13:13)
DX: F31.9 Bipolar disorder, unspecified (principal)
CPT/HCPCS: 90870; 94760

== ENCOUNTER 2023-08-27 06:38 | Day surgery (SDC) | payer OTHER ==
[2023-08-23 15:11] VITALS: BMI 33.5
[2023-08-27] MEDS ORDERED: KETAMINE HCL 100 MG/ML - 5ML VIAL ONE (08:37)
[2023-08-27 09:16] VITALS: RESP 16
[2023-08-27 09:40] VITALS: TEMP 97.1
[2023-08-27 09:53] VITALS: BP 138/72; PULSE 100
== END 2023-08-27 10:21 | disposition home or self-care (01) ==
LOC: FECT 06:38
PROVIDERS: ATTEND Psychiatry & Neurology Psychiatry
PROC: GZB4ZZZ Other Electroconvulsive Therapy (ICD-10-PCS; principal; 2023-08-27 08:45)
DX: F31.9 Bipolar disorder, unspecified (principal)
CPT/HCPCS: 81025; 90870; 94760

== ENCOUNTER → 2023-08-30 | Day surgery (SDC) | payer OTHER ==
[2023-08-27 11:57] VITALS: BMI 33.5
[~2023-08-30] MED LIST changes: +KETAMINE HCL 100 MG/ML - 5ML VIAL ONE; -LACTATED RINGERS SOLUTION 1,000 ML IV SCH; -ONDANSETRON 4 MG/2 ML VIAL IVPUSH PRN; +PROPOFOL 20 ML ONE; +SUCCINYLCHOLINE CHLORIDE 200 MG/10 ML SYRINGE ONE
[2023-08-30 09:35] VITALS: RESP 16
[2023-08-30 11:32] VITALS: TEMP 97.8
[2023-08-30 11:51] VITALS: BP 130/84; PULSE 94
== END | disposition home or self-care (01) ==
LOC: FECT 09:13
PROVIDERS: ATTEND Student in an Organized Health Care Education/Training Program
PROC: GZB4ZZZ Other Electroconvulsive Therapy (ICD-10-PCS; principal; 2023-08-30 10:42)
DX: F31.62 Bipolar disorder, current episode mixed, moderate (principal)
CPT/HCPCS: 90870; 94760

== ENCOUNTER 2023-09-03 09:49 | Day surgery (SDC) | payer OTHER ==
[2023-08-27 13:04] VITALS: BMI 33.5
[2023-09-03 13:16] VITALS: RESP 18
[2023-09-03 13:21] VITALS: BP 113/73; PULSE 102; TEMP 98.5
== END 2023-09-03 13:30 | disposition home or self-care (01) ==
LOC: FECT 09:49
PROVIDERS: ATTEND Student in an Organized Health Care Education/Training Program
PROC: GZB4ZZZ Other Electroconvulsive Therapy (ICD-10-PCS; principal; 2023-09-03 12:11)
DX: F31.9 Bipolar disorder, unspecified (principal)
CPT/HCPCS: 81025; 90870; 94760

== ENCOUNTER 2023-09-06 09:23 | Day surgery (SDC) | payer OTHER ==
[2023-08-28 15:30] VITALS: BMI 33.5
[2023-09-06 11:35] VITALS: RESP 18; TEMP 98.7
[2023-09-06 12:37] VITALS: BP 113/74; PULSE 89
== END 2023-09-06 12:10 ==
LOC: FECT 09:23
PROVIDERS: ATTEND Student in an Organized Health Care Education/Training Program
PROC: GZB4ZZZ Other Electroconvulsive Therapy (ICD-10-PCS; principal; 2023-09-06 10:50)
DX: F31.9 Bipolar disorder, unspecified (principal)
CPT/HCPCS: 90870; 94760

== ENCOUNTER 2023-09-10 09:32 | Day surgery (SDC) | payer OTHER ==
[2023-09-10 10:03] VITALS: BMI 33.5
[2023-09-10 11:49] VITALS: RESP 19; TEMP 97.9
[2023-09-10 12:00] VITALS: BP 130/84; PULSE 94
== END 2023-09-10 12:16 | disposition home or self-care (01) ==
LOC: FECT 09:32
PROVIDERS: ATTEND Psychiatry & Neurology Psychiatry
PROC: GZB4ZZZ Other Electroconvulsive Therapy (ICD-10-PCS; principal; 2023-09-10 10:57)
DX: F31.9 Bipolar disorder, unspecified (principal)
CPT/HCPCS: 81025; 90870; 94760

== ENCOUNTER 2023-09-13 10:15 | Day surgery (SDC) | payer OTHER ==
[2023-09-10 14:11] VITALS: BMI 33.5
[2023-09-13 12:42] VITALS: PULSE 91
[2023-09-13 12:45] VITALS: RESP 16
[2023-09-13 13:00] VITALS: TEMP 97.8
[2023-09-13 13:10] VITALS: BP 124/78
== END 2023-09-13 13:30 | disposition home or self-care (01) ==
LOC: FECT 10:15
PROVIDERS: ATTEND Student in an Organized Health Care Education/Training Program
PROC: GZB4ZZZ Other Electroconvulsive Therapy (ICD-10-PCS; principal; 2023-09-13 12:14)
DX: F31.62 Bipolar disorder, current episode mixed, moderate (principal)
CPT/HCPCS: 90870; 94760

== ENCOUNTER 2023-09-17 10:36 | Day surgery (SDC) | payer OTHER ==
[2023-09-11 15:41] VITALS: BMI 33.5
[2023-09-17] MEDS ORDERED: ONDANSETRON 4 MG/2 ML VIAL IVPUSH PRN (12:15)
[2023-09-17] MEDS ORDERED: LACTATED RINGERS SOLUTION 1,000 ML IV SCH (12:15)
[2023-09-17] MEDS ORDERED: KETOROLAC TROMETHAMINE 30 MG/1 ML VIAL ONE (12:18)
[2023-09-17] MEDS ORDERED: SUCCINYLCHOLINE CHLORIDE 200 MG/10 ML SYRINGE ONE (12:18)
[2023-09-17] MEDS ORDERED: KETAMINE HCL 100 MG/ML - 5ML VIAL ONE (12:18)
[2023-09-17] MEDS ORDERED: PROPOFOL 20 ML ONE (12:18)
[2023-09-17 13:09] VITALS: BP 125/88; PULSE 96; RESP 16; TEMP 97.9
== END 2023-09-17 13:40 | disposition home or self-care (01) ==
LOC: FECT 10:36
PROVIDERS: ATTEND Student in an Organized Health Care Education/Training Program
PROC: GZB4ZZZ Other Electroconvulsive Therapy (ICD-10-PCS; principal; 2023-09-17 12:29)
DX: F31.62 Bipolar disorder, current episode mixed, moderate (principal)
CPT/HCPCS: 81025; 90870; 94760

== ENCOUNTER 2023-09-20 10:33 | Day surgery (SDC) | payer OTHER ==
[2023-09-18 14:58] VITALS: BMI 33.5
[2023-09-20 10:49] VITALS: RESP 18
[2023-09-20 13:42] VITALS: TEMP 98.4
[2023-09-20 13:44] VITALS: PULSE 88
[2023-09-20 13:56] VITALS: BP 121/81
== END 2023-09-20 13:35 ==
LOC: FECT 10:33
PROVIDERS: ATTEND Student in an Organized Health Care Education/Training Program
PROC: GZB4ZZZ Other Electroconvulsive Therapy (ICD-10-PCS; principal; 2023-09-20 12:22)
DX: F31.9 Bipolar disorder, unspecified (principal)
CPT/HCPCS: 90870; 94760

== ENCOUNTER 2023-09-24 09:48 | Day surgery (SDC) | payer OTHER ==
[2023-09-24 10:12] VITALS: BMI 29.7
[2023-09-24 12:44] VITALS: RESP 18; TEMP 98
[2023-09-24 13:16] VITALS: BP 131/79; PULSE 89
== END 2023-09-24 13:00 ==
LOC: FECT 09:48
PROVIDERS: ATTEND Student in an Organized Health Care Education/Training Program
PROC: GZB4ZZZ Other Electroconvulsive Therapy (ICD-10-PCS; principal; 2023-09-24 11:45)
DX: F31.9 Bipolar disorder, unspecified (principal)
CPT/HCPCS: 81025; 90870; 94760

== ENCOUNTER 2023-09-27 08:47 | Day surgery (SDC) | payer OTHER ==
[2023-09-25 11:04] VITALS: BMI 29.9
[2023-09-27 10:24] VITALS: RESP 16
[2023-09-27 11:30] VITALS: BP 131/81; PULSE 96; TEMP 97.8
[2023-09-27 11:58] LABS: HEMATOCRIT 42.9 % (32.4-45.2); MCH 31.1 pg (25.7-33.7); MCHC 32.5 g/dl (32.0-36.0); MEAN CELL VOLUME 95.7 fl (80-96); MEAN PLT VOLUME 11.4 fl (7.5-11.1); PLATELET COUNT 211.4 10^3/uL (134-434); RBC 4.48 10^6/uL (3.60-5.2); RDW 13.1 % (11.6-15.6); WHITE BLOOD COUNT 11.8 10^3/uL (4.0-10.8)
[2023-09-27 12:09] LABS: ALBUMIN 4.1 g/dl (3.4-5.0); BILIRUBIN,TOTAL 0.4 mg/dl (0.2-1); CALCIUM 8.9 mg/dl (8.5-10.1); CREATININE 0.7 mg/dl (0.6-1.3); POTASSIUM 4.7 mmol/L (3.5-5.1)
[2023-09-27 13:05] LABS: PLATELET ESTIMATE ADEQUATE
== END 2023-09-27 11:59 ==
LOC: FECT 08:47
PROVIDERS: ATTEND Student in an Organized Health Care Education/Training Program
PROC: GZB4ZZZ Other Electroconvulsive Therapy (ICD-10-PCS; principal; 2023-09-27 09:47)
DX: F31.9 Bipolar disorder, unspecified (principal)
CPT/HCPCS: 36415; 80053; 85025; 90870; 93005; 94760

== ENCOUNTER 2023-10-01 09:12 | Day surgery (SDC) | payer OTHER ==
[2023-10-01] MEDS ORDERED: LACTATED RINGERS SOLUTION 1,000 ML IV SCH (09:15)
[2023-10-01 09:39] VITALS: BMI 29.9
[2023-10-01 11:15] VITALS: BP 130/66; RESP 18; TEMP 98
[2023-10-01 11:31] VITALS: PULSE 89
== END 2023-10-01 11:40 | disposition home or self-care (01) ==
LOC: FECT 09:12
PROVIDERS: ATTEND Student in an Organized Health Care Education/Training Program
PROC: GZB4ZZZ Other Electroconvulsive Therapy (ICD-10-PCS; principal; 2023-10-01 10:23)
DX: F31.9 Bipolar disorder, unspecified (principal)
CPT/HCPCS: 81025; 90870; 94760

== ENCOUNTER 2023-10-03 09:54 | Day surgery (SDC) | payer OTHER ==
[2023-10-03 10:15] VITALS: BMI 29.9
[2023-10-03 12:31] VITALS: BP 116/74; PULSE 84; RESP 16; TEMP 98
== END 2023-10-03 12:45 ==
LOC: FECT 09:54
PROVIDERS: ATTEND Student in an Organized Health Care Education/Training Program
PROC: GZB4ZZZ Other Electroconvulsive Therapy (ICD-10-PCS; principal; 2023-10-03 11:36)
DX: F31.62 Bipolar disorder, current episode mixed, moderate (principal)
CPT/HCPCS: 90870; 94760

== ENCOUNTER 2023-10-08 09:20 | Day surgery (SDC) | payer OTHER ==
[2023-10-03 15:34] VITALS: BMI 29.9
[2023-10-08] MEDS ORDERED: ACETAMINOPHEN 325 MG TABLET (FP) PO PRN (09:33)
[2023-10-08] MEDS ORDERED: PROMETHAZINE HCL 25 MG/1 ML VIAL IVPB PRN (09:33)
[2023-10-08] MEDS ORDERED: ONDANSETRON 4 MG/2 ML VIAL IVPUSH PRN (09:33)
[2023-10-08] MEDS ORDERED: LACTATED RINGERS SOLUTION 1,000 ML IV SCH (09:45)
[2023-10-08] MEDS ORDERED: KETAMINE HCL 100 MG/ML - 5ML VIAL ONE (10:50)
[2023-10-08 12:26] VITALS: RESP 18
[2023-10-08 12:46] VITALS: BP 125/86; PULSE 89; TEMP 97.8
== END 2023-10-08 12:45 ==
LOC: FECT 09:20
PROVIDERS: ATTEND Student in an Organized Health Care Education/Training Program
PROC: GZB4ZZZ Other Electroconvulsive Therapy (ICD-10-PCS; principal; 2023-10-08 11:29)
DX: F32.A Depression, unspecified (principal)
CPT/HCPCS: 81025; 90870; 94760

== ENCOUNTER 2023-10-11 10:15 | Day surgery (SDC) | payer OTHER ==
[2023-10-09 15:34] VITALS: BMI 29.9
[2023-10-11 10:43] VITALS: RESP 18
[2023-10-11 15:12] VITALS: BP 131/71; PULSE 89; TEMP 97.9
== END 2023-10-11 15:10 ==
LOC: FECT 10:15
PROVIDERS: ATTEND Student in an Organized Health Care Education/Training Program
PROC: GZB4ZZZ Other Electroconvulsive Therapy (ICD-10-PCS; principal; 2023-10-11 13:41)
DX: F31.9 Bipolar disorder, unspecified (principal)
CPT/HCPCS: 90870; 94760

== ENCOUNTER 2023-10-15 10:53 | Day surgery (SDC) | payer OTHER ==
[2023-10-11 16:25] VITALS: BMI 29.9
[2023-10-15 13:48] VITALS: RESP 16
[2023-10-15 14:07] VITALS: TEMP 97.1
[2023-10-15 14:22] VITALS: BP 122/68; PULSE 89
== END 2023-10-15 14:30 | disposition home or self-care (01) ==
LOC: FECT 10:53
PROVIDERS: ATTEND Student in an Organized Health Care Education/Training Program
PROC: GZB4ZZZ Other Electroconvulsive Therapy (ICD-10-PCS; principal; 2023-10-15 13:15)
DX: F31.9 Bipolar disorder, unspecified (principal)
CPT/HCPCS: 81025; 90870; 94760

== ENCOUNTER 2023-10-18 08:52 | Day surgery (SDC) | payer OTHER ==
[2023-10-15 15:25] VITALS: BMI 29.9
[~2023-10-18 08:52] MED LIST changes: +ACETAMINOPHEN 500 MG TABLET (FP) PO PRN; -KETAMINE HCL 100 MG/ML - 5ML VIAL ONE; +LACTATED RINGERS SOLUTION 1,000 ML IV SCH; +ONDANSETRON 4 MG/2 ML VIAL IVPUSH PRN; -PROPOFOL 20 ML ONE; -SUCCINYLCHOLINE CHLORIDE 200 MG/10 ML SYRINGE ONE
[2023-10-18 12:38] VITALS: RESP 20
[2023-10-18 12:40] VITALS: BP 133/89; PULSE 92; TEMP 97.2
== END 2023-10-18 12:35 | disposition home or self-care (01) ==
LOC: FECT 08:52
PROVIDERS: ATTEND Student in an Organized Health Care Education/Training Program
PROC: GZB4ZZZ Other Electroconvulsive Therapy (ICD-10-PCS; principal; 2023-10-18 10:00)
DX: F31.9 Bipolar disorder, unspecified (principal)
CPT/HCPCS: 90870; 94760

== ENCOUNTER 2023-10-22 10:06 | Day surgery (SDC) | payer OTHER ==
[2023-10-21 07:50] VITALS: BMI 29.9
[~2023-10-22 10:06] MED LIST changes: -ACETAMINOPHEN 500 MG TABLET (FP) PO PRN
[2023-10-22 12:35] VITALS: TEMP 97.6
[2023-10-22 13:00] VITALS: RESP 18
[2023-10-22 13:04] VITALS: BP 121/77; PULSE 89
== END 2023-10-22 13:10 ==
LOC: FECT 10:06
PROVIDERS: ATTEND Student in an Organized Health Care Education/Training Program
PROC: GZB4ZZZ Other Electroconvulsive Therapy (ICD-10-PCS; principal; 2023-10-22 11:52)
DX: F31.9 Bipolar disorder, unspecified (principal)
CPT/HCPCS: 81025; 90870; 94760

== ENCOUNTER 2023-10-25 11:22 | Day surgery (SDC) | payer OTHER ==
[2023-10-25 11:36] VITALS: BMI 29.3
[2023-10-25 14:13] VITALS: TEMP 98.4
[2023-10-25 14:22] VITALS: BP 130/84; PULSE 94; RESP 18
== END 2023-10-25 14:05 | disposition home or self-care (01) ==
LOC: FECT 11:22
PROVIDERS: ATTEND Student in an Organized Health Care Education/Training Program
PROC: GZB4ZZZ Other Electroconvulsive Therapy (ICD-10-PCS; principal; 2023-10-25 12:46)
DX: F31.62 Bipolar disorder, current episode mixed, moderate (principal)
CPT/HCPCS: 90870; 94760

== ENCOUNTER 2023-10-29 09:29 | Day surgery (SDC) | payer OTHER ==
[2023-10-25 14:56] VITALS: BMI 29.9
[2023-10-29] MEDS ORDERED: ONDANSETRON 4 MG/2 ML VIAL IVPUSH PRN (11:58)
[2023-10-29] MEDS ORDERED: LACTATED RINGERS SOLUTION 1,000 ML IV SCH (12:00)
[2023-10-29 12:31] VITALS: RESP 18; TEMP 98.7
[2023-10-29 12:41] VITALS: BP 132/85; PULSE 90
== END 2023-10-29 12:45 ==
LOC: FECT 09:29
PROVIDERS: ATTEND Psychiatry & Neurology Psychiatry
PROC: GZB4ZZZ Other Electroconvulsive Therapy (ICD-10-PCS; principal; 2023-10-29 11:41)
DX: F31.9 Bipolar disorder, unspecified (principal)
CPT/HCPCS: 81025; 90870; 94760

== ENCOUNTER 2023-11-01 10:25 | Day surgery (SDC) | payer OTHER ==
[2023-11-01 11:03] VITALS: BMI 29.2
[2023-11-01 13:29] VITALS: TEMP 97.9
[2023-11-01 15:24] VITALS: BP 121/57; PULSE 89; RESP 18
== END 2023-11-01 13:55 | disposition home or self-care (01) ==
LOC: FECT 10:25
PROVIDERS: ATTEND Student in an Organized Health Care Education/Training Program
PROC: GZB4ZZZ Other Electroconvulsive Therapy (ICD-10-PCS; principal; 2023-11-01 12:50)
DX: F31.9 Bipolar disorder, unspecified (principal)
CPT/HCPCS: 90870; 94760

== ENCOUNTER 2023-11-05 06:31 | Day surgery (SDC) | payer OTHER ==
[2023-11-01 17:51] VITALS: BMI 29.2
[2023-11-05 08:51] VITALS: RESP 18; TEMP 98
[2023-11-05 09:12] VITALS: BP 121/61; PULSE 84
== END 2023-11-05 09:15 | disposition home or self-care (01) ==
LOC: FECT 06:31
PROVIDERS: ATTEND Psychiatry & Neurology Psychiatry
PROC: GZB4ZZZ Other Electroconvulsive Therapy (ICD-10-PCS; principal; 2023-11-05 07:30)
DX: F31.9 Bipolar disorder, unspecified (principal)
CPT/HCPCS: 81025; 90870; 94760

== ENCOUNTER 2023-11-08 10:51 | Day surgery (SDC) | payer OTHER ==
[2023-11-06 15:08] VITALS: BMI 29.2
[2023-11-08] MEDS ORDERED: KETAMINE HCL 100 MG/ML - 5ML VIAL ONE (12:39)
[2023-11-08 14:14] VITALS: PULSE 90; RESP 16; TEMP 97.5
[2023-11-08 14:39] VITALS: BP 134/85
== END 2023-11-08 14:48 | disposition home or self-care (01) ==
LOC: FECT 10:51
PROVIDERS: ATTEND Student in an Organized Health Care Education/Training Program
PROC: GZB4ZZZ Other Electroconvulsive Therapy (ICD-10-PCS; principal; 2023-11-08 13:26)
DX: F31.9 Bipolar disorder, unspecified (principal)
CPT/HCPCS: 81025; 90870; 94760

== ENCOUNTER 2023-11-12 10:16 | Day surgery (SDC) | payer OTHER ==
[2023-11-11 11:12] VITALS: BMI 29.2
[2023-11-12 12:50] VITALS: TEMP 97.8
[2023-11-12 12:52] VITALS: RESP 19
[2023-11-12 12:54] VITALS: BP 134/82; PULSE 86
== END 2023-11-12 13:19 | disposition home or self-care (01) ==
LOC: FECT 10:16
PROVIDERS: ATTEND Student in an Organized Health Care Education/Training Program
PROC: GZB4ZZZ Other Electroconvulsive Therapy (ICD-10-PCS; principal; 2023-11-12 12:02)
DX: F31.9 Bipolar disorder, unspecified (principal)
CPT/HCPCS: 81025; 90870; 94760

== ENCOUNTER → 2023-11-15 | Day surgery (SDC) | payer OTHER ==
[2023-11-14 11:49] VITALS: BMI 29.2
[2023-11-15 12:09] VITALS: PULSE 97
[2023-11-15 12:32] VITALS: BP 118/81; RESP 16; TEMP 98.1
== END | disposition home or self-care (01) ==
LOC: FECT 10:22
PROVIDERS: ATTEND Student in an Organized Health Care Education/Training Program
PROC: GZB4ZZZ Other Electroconvulsive Therapy (ICD-10-PCS; principal; 2023-11-15 11:46)
DX: F31.62 Bipolar disorder, current episode mixed, moderate (principal)
CPT/HCPCS: 90870; 94760

== ENCOUNTER 2023-11-19 05:57 | Day surgery (SDC) | payer OTHER ==
[2023-11-18 09:39] VITALS: BMI 29.2
[2023-11-19] MEDS ORDERED: KETAMINE HCL 100 MG/ML - 5ML VIAL ONE (07:55)
[2023-11-19] MEDS ORDERED: PROPOFOL 20 ML ONE (07:59)
[2023-11-19] MEDS ORDERED: SUCCINYLCHOLINE CHLORIDE 200 MG/10 ML SYRINGE ONE (07:59)
[2023-11-19 08:52] VITALS: RESP 18; TEMP 97.3
[2023-11-19 09:28] VITALS: BP 121/81; PULSE 88
== END 2023-11-19 09:31 | disposition home or self-care (01) ==
LOC: FECT 05:57
PROVIDERS: ATTEND Psychiatry & Neurology Psychiatry
PROC: GZB4ZZZ Other Electroconvulsive Therapy (ICD-10-PCS; principal; 2023-11-19 08:04)
DX: F31.9 Bipolar disorder, unspecified (principal)
CPT/HCPCS: 81025; 90870; 94760

== ENCOUNTER 2023-11-26 09:30 | Day surgery (SDC) | payer OTHER ==
[2023-11-26 10:09] VITALS: BMI 29.2
[2023-11-26] MEDS ORDERED: KETAMINE HCL 100 MG/ML - 5ML VIAL ONE (10:42)
[2023-11-26 12:00] VITALS: RESP 18; TEMP 98
[2023-11-26 12:47] VITALS: BP 122/76; PULSE 86
== END 2023-11-26 12:10 | disposition home or self-care (01) ==
LOC: FASU 09:30
PROVIDERS: ATTEND Psychiatry & Neurology Psychiatry
PROC: GZB4ZZZ Other Electroconvulsive Therapy (ICD-10-PCS; principal; 2023-11-26 10:57)
DX: F31.62 Bipolar disorder, current episode mixed, moderate (principal)
CPT/HCPCS: 81025; 90870; 94760

== ENCOUNTER 2023-12-03 11:46 | Day surgery (SDC) | payer OTHER ==
[2023-11-27 16:17] VITALS: BMI 29.2
[2023-12-03 12:10] VITALS: RESP 16
[2023-12-03] MEDS ORDERED: KETAMINE HCL 100 MG/ML - 5ML VIAL ONE (12:46)
[2023-12-03 13:43] VITALS: BP 120/76; TEMP 98
[2023-12-03 13:57] VITALS: PULSE 97
== END 2023-12-03 13:58 | disposition home or self-care (01) ==
LOC: FECT 11:46
PROVIDERS: ATTEND Psychiatry & Neurology Psychiatry
PROC: GZB4ZZZ Other Electroconvulsive Therapy (ICD-10-PCS; principal; 2023-12-03 13:02)
DX: F31.9 Bipolar disorder, unspecified (principal)
CPT/HCPCS: 81025; 90870; 94760

== ENCOUNTER 2023-12-10 10:06 | Day surgery (SDC) | payer OTHER ==
[2023-12-03 16:38] VITALS: BMI 29.2
[2023-12-10] MEDS ORDERED: KETAMINE HCL 100 MG/ML - 5ML VIAL ONE (11:20)
[2023-12-10 12:45] VITALS: RESP 19; TEMP 97.6
[2023-12-10 12:47] VITALS: BP 118/79; PULSE 88
== END 2023-12-10 12:52 | disposition home or self-care (01) ==
LOC: FECT 10:06
PROVIDERS: ATTEND Student in an Organized Health Care Education/Training Program
PROC: GZB4ZZZ Other Electroconvulsive Therapy (ICD-10-PCS; principal; 2023-12-10 11:57)
DX: F31.9 Bipolar disorder, unspecified (principal)
CPT/HCPCS: 81025; 90870; 94760

== ENCOUNTER 2023-12-17 09:35 | Day surgery (SDC) | payer OTHER ==
[2023-12-11 07:49] VITALS: BMI 29.2
[2023-12-17] MEDS ORDERED: KETAMINE HCL 200 MG/20 ML VIAL ONE (11:32)
[2023-12-17] MEDS ORDERED: PROPOFOL 20 ML ONE (11:32)
[2023-12-17] MEDS ORDERED: LIDOCAINE HCL/PF 2% SDV 5ML VIAL ONE (11:32)
[2023-12-17] MEDS ORDERED: SUCCINYLCHOLINE CHLORIDE 200 MG/10 ML SYRINGE ONE (11:32)
[2023-12-17] MEDS ORDERED: METOPROLOL TARTRATE 5 MG/5 ML VIAL ONE (12:09)
[2023-12-17] MEDS ORDERED: ACETAMINOPHEN 325 MG TABLET (FP) PO PRN (12:21)
[2023-12-17] MEDS ORDERED: PROMETHAZINE HCL 25 MG/1 ML VIAL IVPB PRN (12:21)
[2023-12-17] MEDS ORDERED: LACTATED RINGERS SOLUTION 1,000 ML IV SCH (12:30)
[2023-12-17 12:49] VITALS: RESP 18; TEMP 97.9
[2023-12-17 12:55] VITALS: BP 110/69; PULSE 89
== END 2023-12-17 12:55 | disposition home or self-care (01) ==
LOC: FECT 09:35
PROVIDERS: ATTEND Student in an Organized Health Care Education/Training Program
PROC: GZB4ZZZ Other Electroconvulsive Therapy (ICD-10-PCS; principal; 2023-12-17 11:40)
DX: F31.9 Bipolar disorder, unspecified (principal)
CPT/HCPCS: 81025; 90870; 94760

== ENCOUNTER 2023-12-24 08:44 | Day surgery (SDC) | payer OTHER ==
[2023-12-17 15:49] VITALS: BMI 29.2
[2023-12-24] MEDS ORDERED: KETAMINE HCL 100 MG/ML - 5ML VIAL ONE (09:30)
[2023-12-24 10:33] VITALS: PULSE 82; RESP 18; TEMP 97.6
[2023-12-24 11:15] VITALS: BP 112/74
== END 2023-12-24 11:15 | disposition home or self-care (01) ==
LOC: FECT 08:44
PROVIDERS: ATTEND Student in an Organized Health Care Education/Training Program
PROC: GZB4ZZZ Other Electroconvulsive Therapy (ICD-10-PCS; principal; 2023-12-24 09:51)
DX: F31.9 Bipolar disorder, unspecified (principal)
CPT/HCPCS: 81025; 90870; 94760

== ENCOUNTER 2023-12-31 06:00 | Day surgery (SDC) | payer OTHER ==
[2023-12-31 06:24] VITALS: BMI 29.2
[2023-12-31] MEDS ORDERED: KETAMINE HCL 100 MG/ML - 5ML VIAL ONE (07:10)
[2023-12-31 07:55] VITALS: TEMP 97.8
[2023-12-31 08:32] VITALS: BP 125/75; PULSE 86; RESP 18
== END 2023-12-31 08:40 | disposition home or self-care (01) ==
LOC: FECT 06:00
PROVIDERS: ATTEND Student in an Organized Health Care Education/Training Program
PROC: GZB4ZZZ Other Electroconvulsive Therapy (ICD-10-PCS; principal; 2023-12-31 07:28)
DX: F31.9 Bipolar disorder, unspecified (principal)
CPT/HCPCS: 81025; 90870; 94760

== ENCOUNTER 2024-01-07 07:43 | Day surgery (SDC) | payer OTHER ==
[2024-01-01 14:06] VITALS: BMI 29.2
[2024-01-07] MEDS ORDERED: KETAMINE HCL 100 MG/ML - 5ML VIAL ONE ×2 (09:40→10:12)
[2024-01-07] MEDS ORDERED: PROPOFOL 20 ML ONE (10:12)
[2024-01-07 11:09] VITALS: RESP 18; TEMP 97.2
[2024-01-07 11:58] VITALS: BP 128/78; PULSE 81
== END 2024-01-07 11:50 | disposition home or self-care (01) ==
LOC: FECT 07:43
PROVIDERS: ATTEND Student in an Organized Health Care Education/Training Program
PROC: GZB4ZZZ Other Electroconvulsive Therapy (ICD-10-PCS; principal; 2024-01-07 10:15)
DX: F31.62 Bipolar disorder, current episode mixed, moderate (principal)
CPT/HCPCS: 81025; 90870; 94760

== ENCOUNTER 2024-01-14 08:05 | Day surgery (SDC) | payer OTHER ==
[2024-01-08 13:31] VITALS: BMI 29.2
[2024-01-14] MEDS ORDERED: KETAMINE HCL 100 MG/ML - 5ML VIAL ONE (09:36)
[2024-01-14] MEDS ORDERED: METOPROLOL TARTRATE 5 MG/5 ML VIAL ONE (09:54)
[2024-01-14 10:08] VITALS: RESP 16
[2024-01-14 10:44] VITALS: PULSE 85; TEMP 97.2
[2024-01-14 11:19] VITALS: BP 114/68
== END 2024-01-14 11:15 | disposition home or self-care (01) ==
LOC: FECT 08:05
PROVIDERS: ATTEND Student in an Organized Health Care Education/Training Program
PROC: GZB4ZZZ Other Electroconvulsive Therapy (ICD-10-PCS; principal; 2024-01-14 09:49)
DX: F31.9 Bipolar disorder, unspecified (principal)
CPT/HCPCS: 81025; 90870; 94760

== ENCOUNTER 2024-01-21 10:25 | Day surgery (SDC) | payer OTHER ==
[2024-01-16 11:07] VITALS: BMI 29.2
[2024-01-21] MEDS ORDERED: KETAMINE HCL 100 MG/ML - 5ML VIAL ONE (12:19)
[2024-01-21 13:27] VITALS: RESP 18; TEMP 97.8
[2024-01-21 13:44] VITALS: BP 130/78; PULSE 92
== END 2024-01-21 13:45 | disposition home or self-care (01) ==
LOC: FECT 10:25
PROVIDERS: ATTEND Student in an Organized Health Care Education/Training Program
PROC: GZB4ZZZ Other Electroconvulsive Therapy (ICD-10-PCS; principal; 2024-01-21 12:36)
DX: F31.9 Bipolar disorder, unspecified (principal)
CPT/HCPCS: 81025; 90870; 94760

== ENCOUNTER 2024-01-28 07:11 | Day surgery (SDC) | payer OTHER ==
[2024-01-21 15:26] VITALS: BMI 29.2
[2024-01-28] MEDS ORDERED: KETAMINE HCL 100 MG/ML - 5ML VIAL ONE (08:08)
[2024-01-28 09:48] VITALS: TEMP 98
[2024-01-28 09:50] VITALS: BP 127/69; PULSE 89; RESP 18
== END 2024-01-28 10:00 | disposition home or self-care (01) ==
LOC: FECT 07:11
PROVIDERS: ATTEND Student in an Organized Health Care Education/Training Program
PROC: GZB4ZZZ Other Electroconvulsive Therapy (ICD-10-PCS; principal; 2024-01-28 08:48)
DX: F31.9 Bipolar disorder, unspecified (principal)
CPT/HCPCS: 81025; 90870; 94760

== ENCOUNTER 2024-02-04 10:44 | Day surgery (SDC) | payer OTHER ==
[2024-01-29 14:26] VITALS: BMI 29.2
[2024-02-04] MEDS ORDERED: KETAMINE HCL 100 MG/ML - 5ML VIAL ONE (12:17)
[2024-02-04 13:53] VITALS: TEMP 97.7
[2024-02-04 14:15] VITALS: BP 138/84; PULSE 98; RESP 18
== END 2024-02-04 14:15 | disposition home or self-care (01) ==
LOC: FECT 10:44
PROVIDERS: ATTEND Psychiatry & Neurology Psychiatry
PROC: GZB4ZZZ Other Electroconvulsive Therapy (ICD-10-PCS; principal; 2024-02-04 12:57)
DX: F31.9 Bipolar disorder, unspecified (principal)
CPT/HCPCS: 81025; 90870; 94760

== ENCOUNTER 2024-02-11 06:35 | Day surgery (SDC) | payer OTHER ==
[2024-02-07 14:25] VITALS: BMI 29.2
[2024-02-11] MEDS ORDERED: KETAMINE HCL 100 MG/ML - 5ML VIAL ONE (07:52)
[2024-02-11] MEDS ORDERED: DEXAMETHASONE SOD PHOSPHATE 4 MG/1 ML VIAL ONE (07:56)
[2024-02-11] MEDS ORDERED: ONDANSETRON 4 MG/2 ML VIAL ONE (07:56)
[2024-02-11] MEDS ORDERED: PROPOFOL 20 ML ONE (07:56)
[2024-02-11] MEDS ORDERED: KETOROLAC TROMETHAMINE 30 MG/1 ML VIAL ONE (07:56)
[2024-02-11 08:56] VITALS: PULSE 80; RESP 18; TEMP 97.3
[2024-02-11 09:24] VITALS: BP 112/68
== END 2024-02-11 09:20 | disposition home or self-care (01) ==
LOC: FECT 06:35
PROVIDERS: ATTEND Student in an Organized Health Care Education/Training Program
PROC: GZB4ZZZ Other Electroconvulsive Therapy (ICD-10-PCS; principal; 2024-02-11 07:59)
DX: F31.9 Bipolar disorder, unspecified (principal)
CPT/HCPCS: 81025; 90870; 94760

== ENCOUNTER 2024-02-18 08:01 | Day surgery (SDC) | payer OTHER ==
[2024-02-18 08:13] VITALS: TEMP 97.3; BMI 29.2
[2024-02-18] MEDS ORDERED: KETAMINE HCL 100 MG/ML - 5ML VIAL ONE (09:21)
[2024-02-18 10:28] VITALS: RESP 18
[2024-02-18 10:50] VITALS: BP 120/72; PULSE 74
== END 2024-02-18 10:50 | disposition home or self-care (01) ==
LOC: FECT 08:01
PROVIDERS: ATTEND Student in an Organized Health Care Education/Training Program
PROC: GZB4ZZZ Other Electroconvulsive Therapy (ICD-10-PCS; principal; 2024-02-18 09:33)
DX: F31.9 Bipolar disorder, unspecified (principal)
CPT/HCPCS: 81025; 90870; 94760

== ENCOUNTER 2024-02-25 08:34 | Day surgery (SDC) | payer OTHER ==
[2024-02-18 12:50] VITALS: BMI 29.2
[2024-02-25] MEDS ORDERED: KETAMINE HCL 100 MG/ML - 5ML VIAL ONE (10:12)
[2024-02-25] MEDS ORDERED: SUCCINYLCHOLINE CHLORIDE 200 MG/10 ML SYRINGE ONE (10:12)
[2024-02-25] MEDS ORDERED: PROPOFOL 20 ML ONE (10:12)
[2024-02-25 11:17] VITALS: PULSE 93; RESP 18; TEMP 97.4
[2024-02-25 11:47] VITALS: BP 118/74
== END 2024-02-25 11:35 | disposition home or self-care (01) ==
LOC: FECT 08:34
PROVIDERS: ATTEND Student in an Organized Health Care Education/Training Program
PROC: GZB4ZZZ Other Electroconvulsive Therapy (ICD-10-PCS; principal; 2024-02-25 10:21)
DX: F31.62 Bipolar disorder, current episode mixed, moderate (principal)
CPT/HCPCS: 81025; 90870; 94760

== ENCOUNTER 2024-03-03 11:51 | Day surgery (SDC) | payer OTHER ==
[2024-02-26 09:23] VITALS: BMI 29.2
[2024-03-03] MEDS ORDERED: KETAMINE HCL 100 MG/ML - 5ML VIAL ONE (12:53)
[2024-03-03 13:59] VITALS: RESP 18; TEMP 97.7
[2024-03-03 14:27] VITALS: BP 116/65; PULSE 60
== END 2024-03-03 14:32 | disposition home or self-care (01) ==
LOC: FECT 11:51
PROVIDERS: ATTEND Student in an Organized Health Care Education/Training Program
PROC: GZB4ZZZ Other Electroconvulsive Therapy (ICD-10-PCS; principal; 2024-03-03 13:07)
DX: F31.9 Bipolar disorder, unspecified (principal)
CPT/HCPCS: 81025; 90870; 94760

== ENCOUNTER 2024-03-10 09:30 | Day surgery (SDC) | payer OTHER ==
[2024-03-04 14:09] VITALS: BMI 29.2
[2024-03-10] MEDS ORDERED: KETAMINE HCL 100 MG/ML - 5ML VIAL ONE (10:54)
[2024-03-10 12:06] VITALS: RESP 18; TEMP 97.3
[2024-03-10 12:39] VITALS: BP 115/72; PULSE 80
== END 2024-03-10 12:35 | disposition home or self-care (01) ==
LOC: FECT 09:30
PROVIDERS: ATTEND Student in an Organized Health Care Education/Training Program
PROC: GZB4ZZZ Other Electroconvulsive Therapy (ICD-10-PCS; principal; 2024-03-10 11:15)
DX: F31.9 Bipolar disorder, unspecified (principal)
CPT/HCPCS: 81025; 90870; 94760

== ENCOUNTER 2024-03-17 09:40 | Day surgery (SDC) | payer OTHER ==
[2024-03-17 10:27] LABS: HEMATOCRIT 40.6 % (32.4-45.2); HEMOGLOBIN 13.3 G/dL (10.7-15.3); MCH 30.6 pg (25.7-33.7); MCHC 32.7 g/dl (32.0-36.0); MEAN CELL VOLUME 93.6 fl (80-96); MEAN PLT VOLUME 10.2 fl (7.5-11.1); RBC 4.34 10^6/uL (3.60-5.2); RDW 13.1 % (11.6-15.6); WHITE BLOOD COUNT 4.4 10^3/uL (4.0-10.8)
[2024-03-17 10:30] LABS: PLATELET ESTIMATE ADEQUATE
[2024-03-17 10:45] LABS: ALBUMIN 4.2 g/dl (3.4-5.0); BILIRUBIN,TOTAL 0.7 mg/dl (0.2-1); CALCIUM 9.3 mg/dl (8.5-10.1); CREATININE 0.8 mg/dl (0.6-1.3); TOT PROT 6.3 g/dl (6.4-8.2)
[2024-03-17] MEDS ORDERED: KETAMINE HCL 100 MG/ML - 5ML VIAL ONE (11:11)
[2024-03-17 13:10] VITALS: BP 136/84; PULSE 79; RESP 18; TEMP 97.7; BMI 29.2
== END 2024-03-17 12:40 | disposition home or self-care (01) ==
LOC: FECT 09:40
PROVIDERS: ATTEND Student in an Organized Health Care Education/Training Program
PROC: GZB4ZZZ Other Electroconvulsive Therapy (ICD-10-PCS; principal; 2024-03-17 11:26)
DX: F31.9 Bipolar disorder, unspecified (principal)
CPT/HCPCS: 36415; 80053; 81025; 85027; 90870; 93005; 94760

== ENCOUNTER 2024-03-24 10:22 | Day surgery (SDC) | payer OTHER ==
[2024-03-17 13:38] VITALS: BMI 29.2
[2024-03-24] MEDS ORDERED: KETAMINE HCL 100 MG/ML - 5ML VIAL ONE (12:04)
[2024-03-24 13:18] VITALS: TEMP 97.7
[2024-03-24 13:22] VITALS: BP 120/82; PULSE 81; RESP 20
== END 2024-03-24 13:33 | disposition home or self-care (01) ==
LOC: FECT 10:22
PROVIDERS: ATTEND Student in an Organized Health Care Education/Training Program
PROC: GZB4ZZZ Other Electroconvulsive Therapy (ICD-10-PCS; principal; 2024-03-24 12:23)
DX: F31.9 Bipolar disorder, unspecified (principal)
CPT/HCPCS: 81025; 90870; 94760

== ENCOUNTER 2024-03-31 09:49 | Day surgery (SDC) | payer OTHER ==
[2024-03-31] MEDS ORDERED: KETAMINE HCL 100 MG/ML - 5ML VIAL ONE (11:34)
[2024-03-31 12:54] VITALS: TEMP 97.4
[2024-03-31 12:57] VITALS: BP 110/64; PULSE 84; RESP 18
== END 2024-03-31 13:05 | disposition home or self-care (01) ==
LOC: FECT 09:49
PROVIDERS: ATTEND Student in an Organized Health Care Education/Training Program
PROC: GZB4ZZZ Other Electroconvulsive Therapy (ICD-10-PCS; principal; 2024-03-31 11:52)
DX: F31.9 Bipolar disorder, unspecified (principal)
CPT/HCPCS: 81025; 90870; 94760

== ENCOUNTER 2024-04-07 10:17 | Day surgery (SDC) | payer OTHER ==
[2024-04-01 13:10] VITALS: BMI 29.7
[2024-04-07] MEDS ORDERED: KETAMINE HCL 100 MG/ML - 5ML VIAL ONE (11:46)
[2024-04-07 12:51] VITALS: RESP 18; TEMP 97.2
[2024-04-07 14:11] VITALS: BP 122/64; PULSE 72
== END 2024-04-07 13:15 | disposition home or self-care (01) ==
LOC: FECT 10:17
PROVIDERS: ATTEND Student in an Organized Health Care Education/Training Program
PROC: GZB4ZZZ Other Electroconvulsive Therapy (ICD-10-PCS; principal; 2024-04-07 12:04)
DX: F31.9 Bipolar disorder, unspecified (principal)
CPT/HCPCS: 81025; 90870; 94760

== ENCOUNTER 2024-04-14 12:10 | Day surgery (SDC) | payer OTHER ==
[2024-04-09 08:05] VITALS: BMI 29.7
[2024-04-14] MEDS ORDERED: KETAMINE HCL 100 MG/ML - 5ML VIAL ONE (13:01)
[2024-04-14 13:53] VITALS: TEMP 97
[2024-04-14 15:22] VITALS: BP 120/76; PULSE 94; RESP 18
== END 2024-04-14 15:00 | disposition home or self-care (01) ==
LOC: FECT 12:10
PROVIDERS: ATTEND Student in an Organized Health Care Education/Training Program
PROC: GZB4ZZZ Other Electroconvulsive Therapy (ICD-10-PCS; principal; 2024-04-14 13:28)
DX: F31.9 Bipolar disorder, unspecified (principal)
CPT/HCPCS: 81025; 90870; 94760

== ENCOUNTER 2024-04-21 10:14 | Day surgery (SDC) | payer OTHER ==
[2024-04-16 14:38] VITALS: BMI 29.6
[2024-04-21 12:56] VITALS: RESP 18; TEMP 97.4
[2024-04-21 14:00] VITALS: BP 130/78; PULSE 88
== END 2024-04-21 13:15 | disposition home or self-care (01) ==
LOC: FECT 10:14
PROVIDERS: ATTEND Student in an Organized Health Care Education/Training Program
PROC: GZB4ZZZ Other Electroconvulsive Therapy (ICD-10-PCS; principal; 2024-04-21 12:00)
DX: F31.9 Bipolar disorder, unspecified (principal)
CPT/HCPCS: 81025; 90870; 94760

== ENCOUNTER 2024-04-28 10:22 | Day surgery (SDC) | payer OTHER ==
[2024-04-28 10:56] VITALS: RESP 18; BMI 29.6
[2024-04-28 16:25] VITALS: BP 118/82; PULSE 97; TEMP 97.4
== END 2024-04-28 14:08 | disposition home or self-care (01) ==
LOC: FECT 10:22
PROVIDERS: ATTEND Student in an Organized Health Care Education/Training Program
PROC: GZB4ZZZ Other Electroconvulsive Therapy (ICD-10-PCS; principal; 2024-04-28 12:20)
DX: F31.9 Bipolar disorder, unspecified (principal)
CPT/HCPCS: 81025; 90870; 94760

== ENCOUNTER 2024-05-05 10:34 | Day surgery (SDC) | payer OTHER ==
[2024-05-05 10:30] VITALS: BMI 29.6
[2024-05-05 13:43] VITALS: PULSE 92
[2024-05-05 14:03] VITALS: RESP 18; TEMP 97.2
[2024-05-05 14:22] VITALS: BP 120/80
== END 2024-05-05 14:20 | disposition home or self-care (01) ==
LOC: FECT 10:34
PROVIDERS: ATTEND Student in an Organized Health Care Education/Training Program
PROC: GZB4ZZZ Other Electroconvulsive Therapy (ICD-10-PCS; principal; 2024-05-05 13:07)
DX: F31.9 Bipolar disorder, unspecified (principal)
CPT/HCPCS: 81025; 90870; 94760

== ENCOUNTER 2024-05-19 09:11 | Day surgery (SDC) | payer OTHER ==
[2024-05-14 12:25] VITALS: BMI 29.6
[2024-05-19] MEDS ORDERED: PROPOFOL 20 ML ONE (10:46)
[2024-05-19] MEDS ORDERED: ONDANSETRON 4 MG/2 ML VIAL ONE (10:47)
[2024-05-19] MEDS ORDERED: DEXAMETHASONE SOD PHOSPHATE 4 MG/1 ML VIAL ONE (10:47)
[2024-05-19] MEDS ORDERED: SUCCINYLCHOLINE CHLORIDE 200 MG/10 ML SYRINGE ONE (10:47)
[2024-05-19] MEDS ORDERED: KETOROLAC TROMETHAMINE 30 MG/1 ML VIAL ONE (10:47)
[2024-05-19 12:24] VITALS: TEMP 97.8
[2024-05-19 12:31] VITALS: BP 133/89; PULSE 91; RESP 18
== END 2024-05-19 12:30 | disposition home or self-care (01) ==
LOC: FECT 09:11
PROVIDERS: ATTEND Student in an Organized Health Care Education/Training Program
PROC: GZB4ZZZ Other Electroconvulsive Therapy (ICD-10-PCS; principal; 2024-05-19 10:53)
DX: F31.9 Bipolar disorder, unspecified (principal)
CPT/HCPCS: 81025; 90870; 94760

== ENCOUNTER 2024-06-16 09:34 | Day surgery (SDC) | payer OTHER ==
[2024-06-11 13:28] VITALS: BMI 29.6
[2024-06-16 10:22] VITALS: RESP 16
[2024-06-16] MEDS ORDERED: KETAMINE HCL 100 MG/ML - 5ML VIAL ONE (11:15)
[2024-06-16] MEDS ORDERED: PROPOFOL 20 ML ONE (11:16)
[2024-06-16] MEDS ORDERED: SUCCINYLCHOLINE CHLORIDE 200 MG/10 ML SYRINGE ONE (11:16)
[2024-06-16] MEDS ORDERED: KETOROLAC TROMETHAMINE 30 MG/1 ML VIAL ONE (11:19)
[2024-06-16 12:32] VITALS: PULSE 78; TEMP 97.6
[2024-06-16 12:59] VITALS: BP 117/85
== END 2024-06-16 12:45 | disposition home or self-care (01) ==
LOC: FECT 09:34
PROVIDERS: ATTEND Psychiatry & Neurology Psychiatry
PROC: GZB4ZZZ Other Electroconvulsive Therapy (ICD-10-PCS; principal; 2024-06-16 11:34)
DX: F31.62 Bipolar disorder, current episode mixed, moderate (principal)
CPT/HCPCS: 81025; 90870; 94760

== ENCOUNTER 2024-07-07 09:06 | Day surgery (SDC) | payer OTHER ==
[2024-06-25 08:59] VITALS: BMI 29.6
[2024-07-07 10:57] VITALS: RESP 16
[2024-07-07 11:37] VITALS: TEMP 97.7
[2024-07-07 11:40] VITALS: BP 121/72; PULSE 90
== END 2024-07-07 11:35 | disposition home or self-care (01) ==
LOC: FECT 09:06
PROVIDERS: ATTEND Student in an Organized Health Care Education/Training Program
PROC: GZB4ZZZ Other Electroconvulsive Therapy (ICD-10-PCS; principal; 2024-07-07 10:23)
DX: F31.62 Bipolar disorder, current episode mixed, moderate (principal)
CPT/HCPCS: 81025; 90870; 94760

== ENCOUNTER 2024-07-21 14:18 | Day surgery (SDC) | payer OTHER ==
[2024-07-15 17:02] VITALS: BMI 29.6
[2024-07-21] MEDS ORDERED: LACTATED RINGERS SOLUTION 1,000 ML IV SCH (15:00)
[2024-07-21] MEDS ORDERED: KETAMINE HCL 100 MG/ML - 5ML VIAL ONE ×2 (15:12→15:27)
[2024-07-21] MEDS ORDERED: KETAMINE HCL 200 MG/20 ML VIAL ONE (15:22)
[2024-07-21] MEDS ORDERED: SUCCINYLCHOLINE CHLORIDE 200 MG/10 ML SYRINGE ONE (15:27)
[2024-07-21 16:29] VITALS: RESP 18; TEMP 97.3
[2024-07-21 16:48] VITALS: BP 124/82; PULSE 81
== END 2024-07-21 16:53 | disposition home or self-care (01) ==
LOC: FECT 14:18
PROVIDERS: ATTEND Student in an Organized Health Care Education/Training Program
PROC: GZB4ZZZ Other Electroconvulsive Therapy (ICD-10-PCS; principal; 2024-07-21 15:34)
DX: F31.9 Bipolar disorder, unspecified (principal)
CPT/HCPCS: 81025; 90870; 94760

== ENCOUNTER 2024-10-06 11:43 | Day surgery (SDC) | payer OTHER ==
[2024-09-29 16:19] VITALS: BMI 29.4
[2024-10-06 14:01] VITALS: TEMP 100
[2024-10-06 14:02] VITALS: RESP 18
[2024-10-06 14:40] VITALS: BP 116/74; PULSE 90
== END 2024-10-06 14:50 | disposition home or self-care (01) ==
LOC: FECT 11:43
PROVIDERS: ATTEND Psychiatry & Neurology Psychiatry
PROC: GZB4ZZZ Other Electroconvulsive Therapy (ICD-10-PCS; principal; 2024-10-06 13:46)
DX: F31.9 Bipolar disorder, unspecified (principal)
CPT/HCPCS: 81025; 90870; 94760

== ENCOUNTER 2024-10-20 09:36 | Day surgery (SDC) | payer OTHER ==
[2024-10-15 16:02] VITALS: BMI 29.4
[~2024-10-20 09:36] MED LIST changes: -ONDANSETRON 4 MG/2 ML VIAL IVPUSH PRN
[2024-10-20] MEDS ORDERED: KETAMINE HCL 100 MG/ML - 5ML VIAL ONE (10:17)
[2024-10-20 11:23] VITALS: RESP 18; TEMP 97.4
[2024-10-20 11:49] VITALS: BP 113/67; PULSE 83
== END 2024-10-20 12:10 | disposition home or self-care (01) ==
LOC: FECT 09:36
PROVIDERS: ATTEND Psychiatry & Neurology Psychiatry
PROC: GZB4ZZZ Other Electroconvulsive Therapy (ICD-10-PCS; principal; 2024-10-20 10:29)
DX: F31.9 Bipolar disorder, unspecified (principal)
CPT/HCPCS: 81025; 90870; 94760

== ENCOUNTER 2024-11-03 08:05 | Day surgery (SDC) | payer OTHER ==
[2024-10-28 15:26] VITALS: BMI 29.4
[2024-11-03] MEDS ORDERED: KETAMINE HCL 100 MG/ML - 5ML VIAL ONE (11:00)
[2024-11-03 12:04] VITALS: PULSE 86; RESP 18
[2024-11-03 12:23] VITALS: BP 121/77; TEMP 97.9
== END 2024-11-03 12:30 | disposition home or self-care (01) ==
LOC: FECT 08:05
PROVIDERS: ATTEND Student in an Organized Health Care Education/Training Program
PROC: GZB4ZZZ Other Electroconvulsive Therapy (ICD-10-PCS; principal; 2024-11-03 11:11)
DX: F31.9 Bipolar disorder, unspecified (principal)
CPT/HCPCS: 81025; 90870; 94760

== ENCOUNTER 2025-02-02 09:18 | Day surgery (SDC) | payer OTHER ==
[2025-02-02 09:52] VITALS: TEMP 97.4; BMI 29.5
[2025-02-02 11:28] LABS: ABSOLUTE IMMATURE GRANULOCYTES 0.01 x10^3/uL (0.0-0.031); BASOPHILS # 0.03 x10^3/uL (0.01-0.08); EOSINOPHIL % 0.7 % (0.7-5.8); EOSINOPHILS # 0.03 x10^3/uL (0.04-0.36); MCHC 30.1 g/dl (32.2-35.5); MEAN CELL VOLUME 77.8 fl (79.4-94.8); MEAN PLT VOLUME 11.1 fl (9.4-12.3); MONOCYTE # 0.30 x10^3/uL (0.24-0.86); MONOCYTE % 6.9 % (4.7-12.5); RDW 18.1 % (12.1-16.8)
[2025-02-02 11:56] LABS: ALK PHOS 84.0 U/L (45-117); CO2 25.0 mmol/L (21-32); CREATININE 0.6 mg/dl (0.6-1.3); GLUCOSE,RANDOM 88.0 mg/dl (74-106); SGOT/AST 13.0 U/L (15-37); SGPT/ALT 7.0 U/L (7-52); TOT PROT 6.4 g/dl (6.4-8.2)
[2025-02-02] MEDS ORDERED: KETAMINE HCL 200 MG/20 ML VIAL ONE (12:26)
[2025-02-02 14:39] VITALS: BP 118/76; PULSE 94; RESP 16
== END 2025-02-02 14:45 | disposition home or self-care (01) ==
LOC: FECT 09:18
PROVIDERS: ATTEND Psychiatry & Neurology Psychiatry
PROC: GZB4ZZZ Other Electroconvulsive Therapy (ICD-10-PCS; principal; 2025-02-02 11:30)
DX: F31.89 Other bipolar disorder (principal); F60.3 Borderline personality disorder; F50.9 Eating disorder, unspecified
CPT/HCPCS: 36415; 80053; 81025; 85025; 90870

== ENCOUNTER 2025-02-12 06:50 | Day surgery (SDC) | payer OTHER ==
[2025-02-05 14:31] VITALS: BMI 29.4
[2025-02-12] MEDS ORDERED: KETAMINE HCL 100 MG/ML - 5ML VIAL ONE (09:36)
[2025-02-12] MEDS ORDERED: SUCCINYLCHOLINE CHLORIDE 200 MG/10 ML SYRINGE ONE (09:37)
[2025-02-12] MEDS ORDERED: ETOMIDATE 20 MG/10 ML VIAL IVPUSH ONE (09:37)
[2025-02-12 10:34] VITALS: BP 123/85; PULSE 78; RESP 20; TEMP 98.2
== END 2025-02-12 10:50 | disposition home or self-care (01) ==
LOC: FECT 06:50
PROVIDERS: ATTEND Student in an Organized Health Care Education/Training Program
PROC: GZB4ZZZ Other Electroconvulsive Therapy (ICD-10-PCS; principal; 2025-02-12 09:45)
DX: F32.A Depression, unspecified (principal)
CPT/HCPCS: 81025; 90870; 94760

== ENCOUNTER 2025-02-23 09:05 | Day surgery (SDC) | payer OTHER ==
[2025-02-18 11:50] VITALS: BMI 29.4
[2025-02-23] MEDS ORDERED: KETAMINE HCL 100 MG/ML - 5ML VIAL ONE (10:53)
[2025-02-23] MEDS ORDERED: ETOMIDATE 20 MG/10 ML VIAL IVPUSH ONE (11:03)
[2025-02-23] MEDS ORDERED: KETOROLAC TROMETHAMINE 30 MG/1 ML VIAL ONE (11:03)
[2025-02-23] MEDS ORDERED: SUCCINYLCHOLINE CHLORIDE 200 MG/10 ML SYRINGE ONE (11:03)
[2025-02-23] MEDS ORDERED: ONDANSETRON 4 MG/2 ML VIAL ONE (11:03)
[2025-02-23] MEDS ORDERED: DEXAMETHASONE SOD PHOSPHATE 4 MG/1 ML VIAL ONE (11:03)
[2025-02-23 12:07] VITALS: TEMP 97.8
[2025-02-23 12:10] VITALS: BP 126/84; PULSE 72; RESP 19
== END 2025-02-23 12:25 | disposition home or self-care (01) ==
LOC: FECT 09:05
PROVIDERS: ATTEND Student in an Organized Health Care Education/Training Program
PROC: GZB4ZZZ Other Electroconvulsive Therapy (ICD-10-PCS; principal; 2025-02-23 11:08)
DX: F32.A Depression, unspecified (principal)
CPT/HCPCS: 81025; 90870; 94760

== ENCOUNTER 2025-03-04 06:43 | Day surgery (SDC) | payer OTHER ==
[2025-02-26 13:25] VITALS: BMI 29.4
[2025-03-04] MEDS ORDERED: KETAMINE HCL 100 MG/ML - 5ML VIAL ONE (08:31)
[2025-03-04] MEDS ORDERED: PROPOFOL 20 ML ONE (08:47)
[2025-03-04 09:24] VITALS: RESP 18
[2025-03-04 09:43] VITALS: PULSE 74; TEMP 98
[2025-03-04 10:40] VITALS: BP 112/70
== END 2025-03-04 10:32 | disposition home or self-care (01) ==
LOC: FECT 06:43
PROVIDERS: ATTEND Student in an Organized Health Care Education/Training Program
PROC: GZB4ZZZ Other Electroconvulsive Therapy (ICD-10-PCS; principal; 2025-03-04 08:55)
DX: F31.9 Bipolar disorder, unspecified (principal)
CPT/HCPCS: 81025; 90870; 94760

== ENCOUNTER 2025-05-04 08:42 | Day surgery (SDC) | payer OTHER ==
[~2025-05-04 08:42] MED LIST changes: +ONDANSETRON 4 MG/2 ML VIAL IVPUSH PRN
[2025-05-04] MEDS ORDERED: KETAMINE HCL 200 MG/20 ML VIAL ONE (10:33)
[2025-05-04 10:57] VITALS: TEMP 97.9
[2025-05-04 11:02] VITALS: RESP 16
[2025-05-04 11:24] VITALS: BP 105/75; PULSE 74
== END 2025-05-04 11:41 | disposition home or self-care (01) ==
LOC: FECT 08:42
PROVIDERS: ATTEND Student in an Organized Health Care Education/Training Program
PROC: GZB4ZZZ Other Electroconvulsive Therapy (ICD-10-PCS; principal; 2025-05-04 10:39)
DX: F31.63 Bipolar disorder, current episode mixed, severe, without psychotic features (principal)
CPT/HCPCS: 81025; 90870; 94760